=== PATIENT | female | born 1975 | race Caucasian/White ===

== ENCOUNTER 2017-05-08 18:38 | Emergency (ER) | payer SELFPAY ==
[~2017-05-08] VITALS: Ht 172.7 cm; Wt 96.6 kg
[~2017-05-08 18:38] MED LIST: ALBU8.5H4 IH; AZIT250T PO; BSP10T; CIPR500T78 PO; CYCL10TA9 PO; FLUO20CA25; HYDR-1231 PO; IBUP800T26 PO; LEVO500T2 PO; LITH300C; METH4TAB PO; NITR-65 PO; ONDAN4ODT PO; PRD20T PO; QUET50TA49; RT-ALBUINH IH; SEROQUEL; SULF-222 PO; TRAM50TA2 PO; VENL75CA93
[2017-05-08] MEDS ORDERED: RX-ALBUTEROL INHALER (PROAIR) 8 GM IH STA (20:39)
[2017-05-08] MEDS ORDERED: RX-AMOXICILLIN 500 MG CAP #3 PPK PO STA (20:39)
[2017-05-08] MEDS ORDERED: AMOX500C2 PO (20:43)
[2017-05-08] MEDS ORDERED: CIPR500T4 PO (20:43)
[2017-05-08] MEDS ORDERED: BENZ-13 PO (20:43)
--- NOTE | 2017-05-08 20:44 | ED Cough/URI ---
General Chief Complaint: Cough/Cold/Flu Symptoms Stated Complaint: SORE THROAT,DIARRHEA,CHEST PAIN,HEADACHE Nursing Triage Note: C/O cough sore throat GUPTA diarrhea times 1 week. NO fever or vomiting. States productive cough green sputum cp with breathing Source: patient Exam Limitations: no limitations History of Present Illness Time seen by provider: 20:19 Initial Comments 41-year-old female patient presents to the emergency department with complaints of sore throat, cough, nasal congestion, chest congestion, headache, and intermittent diarrhea 1 week. Denies shortness of air, wheezing, Nausea, or vomiting. Patient also reports rib pain with coughing the last couple of days. Timing/Duration: week, getting worse Severity/Quality: productive cough (green productive cough) Prior Episodes/Possible Cause: no prior episodes Modifying Factors: Worse With Coughing Allergies and Home Medications Allergies Coded Allergies: No Known Drug Allergies (Unverified , 01/27/09) Home Medications Albuterol Sulfate 8.5 Gm Hfa.aer.ad, 2 PUFF IH Q4H, #1 USE WITH SPACER AT ALL TIMES Prescribed by: ANJALI TODD on 03/21/15 1718 Albuterol Sulfate 8.5 Gm Hfa.aer.ad, 2 PUFF IH Q4H PRN for SHORTNESS OF BREATH, #1 Prescribed by: GOVIND EVANS on 09/21/151906 Albuterol Sulfate 8.5 Gm Hfa.aer.ad, 1-4 PUFF IH Q4H PRN for SHORTNESS OF BREATH , #1 Prescribed by: CHARLENE COELHO on 02/07/162033 Amoxicillin 500 Mg Capsule, 500 MG PO TID, #21 Ref 0 Prescribed by: SHEREE SIEGEL on 05/08/172042 Azithromycin 250 Mg Tablet, 250 MG PO DAILY, #4 Prescribed by: GOVIND EVANS on 09/21/15 190 Benzonatate 100 Mg Capsule, 1-2 TAB PO TID PRN for COUGH, #14 Ref 1 Prescribed by: SHEREE SIEGEL on 05/08/172042 Ciprofloxacin HCl 500 Mg Tablet, 500 MG PO BID, #14 Ref 0 Prescribed by: SHEREE SIEGEL on 05/08/172042 Casas Carbonate 300 Mg Capsule, #60 (Reported) Prednisone 20 Mg Tab, 40 MG PO DAILY, #6 Prescribed by: GOVIND EVANS on 09/21/151907 Prednisone 20 Mg Tab, 20 MG PO DAILY, #5 Prescribed by: CHARLENE COELHO on 02/07/162033 Quetiapine Fumarate 50 Mg Tab.er.24h, #30 (Reported) Venlafaxine HCl 75 Mg Cap.er.24h, #30 (Reported) Constitutional: see HPI, No fever, malaise EENTM: see HPI, nose congestion, nose pain (sinus pain), throat pain, No ear discharge, No ear pain, No throat swelling Respiratory: see HPI, cough, No dyspnea on exertion, phlegm, No short of breath , No wheezing Cardiovascular: No chest pain, No palpitations, No syncope Gastrointestinal: No abdominal pain, No constipation, diarrhea, No nausea, No vomiting Genitourinary: No decreased output, No dysuria, No frequency, No hematuria Musculoskeletal: other (generalized bodyaches) Skin: no symptoms reported Psychiatric/Neurological: See HPI, Headache, Denies Numbness, Denies Paresthesia, Denies Tingling, Denies Weakness All Other Systems Reviewed Negative Unless Noted: Yes (Negative excepted noted.) Past Xxsawsd-Eibxfe-Wlmaxu Hx Patient Social History Alcohol Use: Occasionally Uses Recreational Drug Use: No Smoking Status: Current Everyday Smoker Type Used: Cigarettes 2nd Hand Smoke Exposure: No Recent Foreign Travel: No Contact w/Someone Who Travel: No Recent Infectious Disease Expo: No Physical Abuse: No Sexual Abuse: No Mistreated: No Fear: No Immunizations Up To Date Tetanus Booster (TDap): Unknown Seasonal Allergies Seasonal Allergies: No Surgeries History of Surgeries: Yes (BACK SURG) Surgeries: Section, Gallbladder, Orthopedic, Tubal Ligation Respiratory History of Respiratory Disorde: Yes (tobaccoism) Respiratory Disorders: Asthma Cardiovascular History of Cardiac Disorders: No Neurological History of Neurological Disord: Yes Neurological Disorders: Headaches /Migraines 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 Gastrointestinal History of Gastrointestinal Di: No Musculoskeletal History of Musculoskeletal Dis: No Endocrine History of Endocrine Disorders: No Cancer History of Cancer: No Psychosocial History of Psychiatric Problem: Yes (ANGER EXPLOSIVE DISORDER) Behavioral Health Disorders: Anxiety, Bipolar Suicide Risk Score: 0 Integumentary History of Skin or Integumenta: No Blood Transfusions History of Blood Disorders: No Adverse Reaction to a Blood Tr: No Reviewed Nursing Assessment Reviewed/Agree w Nursing PMH: Yes Family Medical History Significant Family History: Heart Disease, Cancer, COPD, Stroke Physical Exam Vital Signs Vital Sign - Last 12Hours 05/08/17 19:15 Temp 97.2 Pulse 77 Resp 18 B/P (MAP) 122/67 Pulse Ox 98 Capillary Refill : Less Than 3 Seconds General Appearance: WD/WN, no apparent distress HEENT: PERRL/EOMI, TMs normal, pharyngeal erythema, other (maxillary sinus tenderness noted bilaterally. nasal mucosal swelling noted. (+) nasal congestion. ) Neck: non-tender, full range of motion, supple, normal inspection, No other ( negative nuchal rigidity.) Respiratory: no respiratory distress, no accessory muscle use, wheezing (faint expiratory wheeze rt base, cleared with coughing.) Cardiovascular: normal peripheral pulses, regular rate, rhythm, no edema, no murmur Gastrointestinal: normal bowel sounds, non tender, soft, no organomegaly Extremities: no pedal edema, normal capillary refill Neurologic/Psychiatric: alert, normal mood/affect, oriented x 3 Skin: normal color, warm/dry Progress/Results/Core Measures Results/Orders My Orders Orders - SHEREE SIEGEL Rx-Amoxicillin Capsule (Rx-Polymox Capsu (05/08/17 20:39) Rx-Albuterol Inhaler (Rx-Proair) (05/08/17 20:39) Benzonatate Capsule (Tessalon Perles) (05/08/17 20:45) Prednisone Tablet (Deltasone Tablet) (05/08/17 20:45) Levofloxacin Tablet (Levaquin Tablet) (05/08/17 20:45) Vital Signs/I&O Vital Sign - Last 12Hours 05/08/17 19:15 Temp 97.2 Pulse 77 Resp 18 B/P (MAP) 122/67 Pulse Ox 98 Blood Pressure Mean: 85 Departure Communication (Admissions) Progress Notes Patient seen and evaluated. Plan for discharge to home with oral Cipro Floxin, amoxicillin, Tessalon Perles. Patient to continue using the take home albuterol inhaler. Impression Impression: Primary Impression: Sinusitis, acute maxillary Qualified Codes: J01.00 - Acute maxillary sinusitis, unspecified Additional Impression: Bronchitis, acute Qualified Codes: J20.9 - Acute bronchitis, unspecified Disposition: 01 HOME, SELF-CARE Condition: Improved Departure-Patient Inst. Decision time for Depature: 20:41 Referrals: [facility] (PCP) Primary Care Physician NADIA TORREZ APRN (Family) Primary Care Physician Patient Instructions: Acute Bronchitis, Adult (DC), Sinusitis, Adult (DC) Add. Discharge Instructions: All discharge instructions reviewed with patient and/or family. Voiced understanding. Medications as instructed. Afrin nasal spray [id number] as needed for nasal congestion. Saline nasal spray [id number] as needed. Drink plenty of fluids. Cool humidifier. Tylenol extra strength over-the- counter as directed for pain or headache. Ibuprofen 800 mg by mouth every 8 hours as needed for pain or headache. Follow-up with your family practitioner for recheck if no improvement in symptoms. Return to the emergency department for worsened pain, headache, dizziness, changes in vision, slurred speech, vomiting, seizure, chest pain, shortness of air, or any other concerns. Scripts Benzonatate (Tessalon Perle) 100 Mg Capsule 1-2 TAB PO TID Y for COUGH, #14 CAP 1 Refill Prov: SHEREE SIEGEL 05/08/17 Amoxicillin (Amoxicillin) 500 Mg Capsule 500 MG PO TID, #21 CAP 0 Refills Prov: SHEREE SIEGEL 05/08/17 Ciprofloxacin HCl (Ciprofloxacin HCl) 500 Mg Tablet 500 MG PO BID, #14 TAB 0 Refills Prov: SHEREE SIEGEL 05/08/17 Work/School Note: Work Release Form Date Seen in the Emergency Department: May 08, 2017 Return to Work: May 10, 2017 Restrictions: Return-No Fever (24hrs) SHEREE SIEGEL May 08, 2017 20:44
[2017-05-08] MEDS ORDERED: BENZONATATE 100 MG (TESSALON) CAPSULE PO ONE (20:45)
[2017-05-08] MEDS ORDERED: predniSONE 20 MG TAB PO ONE (20:45)
[2017-05-08] MEDS ORDERED: LEVOFLOXACIN 500 MG TAB (LEVAQUIN) PO ONE (20:45)
[2017-05-08 21:37] VITALS: BP 120/68
== END 2017-05-08 21:20 | disposition home or self-care (01) ==
LOC: EDUNIT# 18:38 → ER 18:41
DX: J01.90 Acute sinusitis, unspecified (principal); J20.9 Acute bronchitis, unspecified; J45.909 Unspecified asthma, uncomplicated; G43.909 Migraine, unspecified, not intractable, without status migrainosus; F41.9 Anxiety disorder, unspecified; F31.9 Bipolar disorder, unspecified; F17.210 Nicotine dependence, cigarettes, uncomplicated; Z87.59 Personal history of other complications of pregnancy, childbirth and the puerperium; Z82.49 Family history of ischemic heart disease and other diseases of the circulatory system; Z98.51 Tubal ligation status
CPT/HCPCS: 99283

== ENCOUNTER 2017-08-15 16:06 | Emergency (ER) | payer SELFPAY ==
[~2017-08-15 16:06] MED LIST changes: +AMOX500C2 PO; +BENZ-13 PO; +CIPR500T4 PO
== END 2017-08-15 18:20 | disposition left against medical advice (07) ==
LOC: EDUNIT# 16:06 → ER 16:08
DX: R68.83 Chills (without fever) (principal); R05 Cough; R51 Headache

== ENCOUNTER 2018-10-09 23:02 | Emergency (ER) | payer SELFPAY ==
[~2018-10-09] VITALS: Ht 170.2 cm; Wt 103.4 kg
[~2018-10-09 23:02] MED LIST changes: -BENZ-13 PO; +BENZ100C18 PO; +QUET50TA4; -QUET50TA49
[2018-10-10 01:18] LABS: BILIRUBIN,URINE NEGATIVE (NEGATIVE); CLARITY,URINE CLEAR; COLOR,URINE YELLOW; GLUCOSE, URINE (UA) NEGATIVE (NEGATIVE); KETONES,URINE NEGATIVE (NEGATIVE); LEUKOCYTE ESTERASE ,URINE NEGATIVE (NEGATIVE); NITRITE,URINE NEGATIVE (NEGATIVE); PH,URINE 7 (5-9); PROTEIN,URINE 1+ (NEGATIVE); UROBILINOGEN,URINE 1 MG/DL (NORMAL)
[2018-10-10 01:35] LABS: AMORPHOUS SEDIMENT,UR FEW AMOR URATES /LPF; BACTERIA,URINE NEGATIVE /HPF; RBC,URINE 0-2 /HPF
[2018-10-10 02:10] LABS: BASOPHILS % (AUTO) 0 % (0-10); EOSINOPHILS # (AUTO) 0.1 10^3/uL (0.0-0.3); EOSINOPHILS % (AUTO) 2 % (0-10); HEMATOCRIT 42 % (35-52); HEMOGLOBIN 14.1 G/DL (11.5-16.0); LYMPHOCYTES # (AUTO) 2.7 X 10^3 (1.0-4.0); LYMPHOCYTES % (AUTO) 34 % (12-44); MEAN CORPUSCULAR HEMOGLOBIN 32 PG (25-34); MEAN CORPUSCULAR HGB CONC 34 G/DL (32-36); MEAN CORPUSCULAR VOLUME 94 FL (80-99); MEAN PLATELET VOLUME 10.9 FL (7.4-10.4); MONOCYTES # (AUTO) 0.5 X 10^3 (0.0-1.0); MONOCYTES % (AUTO) 7 % (0-12); NEUTROPHILS # (AUTO) 4.5 X 10^3 (1.8-7.8); NEUTROPHILS % (AUTO) 58 % (42-75); PLATELET COUNT 226 10^3/uL (130-400); RED CELL DISTRIBUTION WIDTH 12.3 % (10.0-14.5); WHITE BLOOD COUNT 7.9 10^3/uL (4.3-11.0)
[2018-10-10 02:29] LABS: ALANINE AMINOTRANSFERASE 18 U/L (0-55); ALBUMIN 3.8 GM/DL (3.2-4.5); ALKALINE PHOSPHATASE 30 U/L (40-136); AMYLASE 69 U/L (25-125); BILIRUBIN,TOTAL 0.8 MG/DL (0.1-1.0); BUN/CREATININE RATIO 13; CALCIUM 9.5 MG/DL (8.5-10.1); CARBON DIOXIDE 20 MMOL/L (21-32); CHLORIDE 109 MMOL/L (98-107); CREATININE SERUM 0.78 MG/DL (0.60-1.30); GFR ESTIMATED > 60; GLUCOSE 90 MG/DL (70-105); LIPASE 23 U/L (8-78); POTASSIUM 3.8 MMOL/L (3.6-5.0); SODIUM 141 MMOL/L (135-145); TOTAL PROTEIN 6.6 GM/DL (6.4-8.2)
[2018-10-10 02:47] LABS: AMPHETAMINE SCREEN, URINE NEGATIVE (NEGATIVE); BARBITURATE SCREEN URINE NEGATIVE (NEGATIVE); BENZODIAZEPINES SCREEN URINE NEGATIVE (NEGATIVE); CANNABINOID SCREEN, URINE NEGATIVE (NEGATIVE); COCAINE SCREEN URINE NEGATIVE (NEGATIVE); METHADONE STAT NEGATIVE (NEGATIVE); METHAMPHETAMINE SCREEN URINE S NEGATIVE (NEGATIVE); OPIATE SCREEN URINE NEGATIVE (NEGATIVE); OXYCODONE STAT NEGATIVE (NEGATIVE); PROPOXYPHENE STAT NEGATIVE (NEGATIVE); TRICYCLIC ANTIDEPRESSANTS SCRE NEGATIVE (NEGATIVE)
[2018-10-10] MEDS ORDERED: HYOS0.1283 SL (03:23)
--- NOTE | 2018-10-10 03:23 | ED Abdominal Pain ---
General Chief Complaint: Abdominal/GI Problems Stated Complaint: ABD PAIN Nursing Triage Note: lower abdominal pain since approx. 2230 Sepsis Screen: No Definite Risk Allergies and Home Medications Allergies Coded Allergies: No Known Drug Allergies (Unverified , 01/27/09) Past Cqdzvti-Mfcqtf-Fqpdvr Hx Patient Social History Alcohol Use: Rarely Uses Recreational Drug Use: No Smoking Status: Current Everyday Smoker Type Used: Cigarettes 2nd Hand Smoke Exposure: Yes Recent Foreign Travel: No Contact w/Someone Who Travel: No Recent Infectious Disease Expo: No Recent Hopitalizations: No Immunizations Up To Date Tetanus Booster (TDap): Unknown Seasonal Allergies Seasonal Allergies: No Past Medical History Surgeries: Yes (BACK SURG) Section, Gallbladder, Orthopedic, Tubal Ligation Respiratory: Yes Asthma Cardiac: No Neurological: Yes Headaches /Migraines : 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 oz. 103.224456tt; 35.24 BMI Method:Stated Progress/Results/Core Measures Results/Orders Lab Results Laboratory Tests Test 10/10/18 00:55 10/10/18 02:00 Range/Units Urine Color YELLOW Urine Clarity CLEAR Urine pH 7 5-9 Urine Specific [place] 1.015 L 1.016-1.022 Urine Protein 1+ H NEGATIVE Urine Glucose (UA) NEGATIVE NEGATIVE Urine Ketones NEGATIVE NEGATIVE Urine Nitrite NEGATIVE NEGATIVE Urine Bilirubin NEGATIVE NEGATIVE Urine Urobilinogen 1 NORMAL MG/DL Urine Leukocyte Esterase NEGATIVE NEGATIVE Urine RBC (Auto) 1+ H NEGATIVE Urine RBC 0-2 /HPF Urine WBC NONE /HPF Urine Squamous Epithelial Cells 10-25 H /HPF Urine Crystals PRESENT H /LPF Urine Amorphous Sediment FEW SABI URATES H /LPF Urine Bacteria NEGATIVE /HPF Urine Casts NONE /LPF Urine Mucus NEGATIVE /LPF Urine Culture Indicated NO Urine Opiates Screen NEGATIVE NEGATIVE Urine Oxycodone Screen NEGATIVE NEGATIVE Urine Methadone Screen NEGATIVE NEGATIVE Urine Propoxyphene Screen NEGATIVE NEGATIVE Urine Barbiturates Screen NEGATIVE NEGATIVE Ur Tricyclic Antidepressants Screen NEGATIVE NEGATIVE Urine Phencyclidine Screen NEGATIVE NEGATIVE Urine Amphetamines Screen NEGATIVE NEGATIVE Urine Methamphetamines Screen NEGATIVE NEGATIVE Urine Benzodiazepines Screen NEGATIVE NEGATIVE Urine Cocaine Screen NEGATIVE NEGATIVE Urine Cannabinoids Screen NEGATIVE NEGATIVE White Blood Count 7.9 4.3-11.0 10^3/uL Red Blood Count 4.45 4.35-5.85 10^6/uL Hemoglobin 14.1 11.5-16.0 G/DL Hematocrit 42 35-52 % Mean Corpuscular Volume 94 80-99 FL Mean Corpuscular Hemoglobin 32 25-34 PG Mean Corpuscular Hemoglobin Concent 34 32-36 G/DL Red Cell Distribution Width 12.3 10.0-14.5 % Platelet Count 226 130-400 10^3/uL Mean Platelet Volume 10.9 H 7.4-10.4 FL Neutrophils (%) (Auto) 58 42-75 % Lymphocytes (%) (Auto) 34 12-44 % Monocytes (%) (Auto) 7 0-12 % Eosinophils (%) (Auto) 2 0-10 % Basophils (%) (Auto) 0 0-10 % Neutrophils # (Auto) 4.5 1.8-7.8 X 10^3 Lymphocytes # (Auto) 2.7 1.0-4.0 X 10^3 Monocytes # (Auto) 0.5 0.0-1.0 X 10^3 Eosinophils # (Auto) 0.1 0.0-0.3 10^3/uL Basophils # (Auto) 0.0 0.0-0.1 10^3/uL Sodium Level 141 135-145 MMOL/L Potassium Level 3.8 3.6-5.0 MMOL/L Chloride Level 109 H 98-107 MMOL/L Carbon Dioxide Level 20 L 21-32 MMOL/L Anion Gap 12 5-14 MMOL/L Blood Urea Nitrogen 10 7-18 MG/DL Creatinine 0.78 0.60-1.30 MG/DL Estimat Glomerular Filtration Rate > 60 BUN/Creatinine Ratio 13 Glucose Level 90 70-105 MG/DL Calcium Level 9.5 8.5-10.1 MG/DL Corrected Calcium 9.7 8.5-10.1 MG/DL Total Bilirubin 0.8 0.1-1.0 MG/DL Aspartate Amino Transf (AST/SGOT) 24 5-34 U/L Alanine Aminotransferase (ALT/SGPT) 18 0-55 U/L Alkaline Phosphatase 30 L 40-136 U/L Total Protein 6.6 6.4-8.2 GM/DL Albumin 3.8 3.2-4.5 GM/DL Amylase Level 69 25-125 U/L Lipase 23 8-78 U/L My Orders Orders - ANJALI TODD DO Ua Culture If Indicated (10/10/18 00:48) Urine Bedside (10/10/18 00:59) Ct Abd/Pelvis Wo(Kidney Stone) (10/10/18 01:43) Abdomen, Flat & Upright/Decub (10/10/18 01:43) Amylase (10/10/18 01:43) Cbc With Automated Diff (10/10/18 01:43) Comprehensive Metabolic Panel (10/10/18 01:43) Drug Screen Stat (Urine) (10/10/18 01:43) Lipase (10/10/18 01:43) Hyoscyamine Sl Tablet (Levsin Sl Tablet) (10/10/18 03:30) Vital Signs/I&O 10/09/18 23:45 Temp 98.6 Pulse 91 Resp 18 B/P (MAP) 114/83 (93) Pulse Ox 97 O2 Delivery Room Air Blood Pressure Mean: 93 Departure Impression Primary Impression: Abdominal pain Disposition: HOME, SELF-CARE Condition: Improved Departure-Patient Inst. Referrals: [facility] (PCP/Family) Primary Care Physician Patient Instructions: Acute Abdomen (Belly Pain), Adult (DC) Add. Discharge Instructions: CLEAR LIQUIDS--WATER, BROTH, JELLO. GATORADE NO FOOD UNTIL YOUR PAIN IS GONE WHEN YOUR PAIN IS GONE, ADD BRATS DIET TO CLEAR LIQUIDS--BANANAS, RICE, APPLESAUCE, TOAST, SALTINES FOLLOW UP WITH YOUR DR TOMORROW IF NO BETTER RETURN TO ER IF WORSE All discharge instructions reviewed with patient and/or family. Voiced understanding. Scripts Hyoscyamine Sulfate (Levsin-Sl) 0.125 Mg Tab.subl 1-2 TAB SL Q4H for Abdominal Pain, #10 TAB Prov: ANJALI TODD DO 10/10/18 ANJALI TODD DO Oct 10, 2018 03:23
[2018-10-10] MEDS ORDERED: HYOSCYAMINE 0.125 MG (LEVSIN) TAB PO ONE (03:30)
[2018-10-10 03:37] VITALS: BP 122/85
--- NOTE | 2018-10-10 06:16 | Diagnostic Imaging Report ---
PROCEDURE: CT urinary tract, rule out kidney stone. TECHNIQUE: Multiple contiguous axial images were obtained through the abdomen and pelvis without the use of intravenous contrast. INDICATION: Abdominal pain. FINDINGS: There is an approximately 1 cm lucency in the dome of the liver with other tiny hypodensities seen in both lobes of the liver. These are too small to fully characterize on noncontrast study but likely represent cysts. The gallbladder surgically absent without evidence of biliary ductal dilatation. No pancreatic, adrenal gland or splenic abnormality is seen. Evaluation of kidneys is limited without intravenous contrast. There is an approximately 1.2 cm exophytic nodule posteriorly on the right which likely represents a cyst. No free fluid is seen within the abdomen or pelvis. There are several cysts in the left adnexal region reaching 2 cm in size. Dominant cyst in the right adnexa reaches 2.8 cm in diameter. Note is made of mild left convexity curvature of the lumbar spine with mild endplate spurring in the lower lumbar region. There is also moderate L4-L5 and L5-S1 degenerative facet arthropathy with grade 1 anterolisthesis of L5 on S1. IMPRESSION: Dominant bilateral ovarian cysts without evidence of significant free fluid or other acute abnormality in the abdomen or pelvis. If warranted, followup ultrasound of the pelvis could be performed after passage of several menstrual cycles to document resolution. Dictated by: Dictated on workstation # [id number]
--- NOTE | 2018-10-10 06:56 | Diagnostic Imaging Report ---
Indication: Abdominal pain. Supine and upright views of the abdomen are obtained. Comparison is made to study of 01/27/2009. Overall bowel gas pattern is unremarkable. There is no evidence of free intraperitoneal gas or pneumatosis. Surgical clips are seen in the gallbladder fossa and bilaterally in the pelvis. Degenerative changes are seen in the lower lumbar spine. Impression: No acute abnormalities identified. Dictated by: Dictated on workstation # [id number]
== END 2018-10-10 03:46 | disposition home or self-care (01) ==
LOC: EDUNIT# 23:02 → ER 23:03
DX: R10.30 Lower abdominal pain, unspecified (principal); J45.909 Unspecified asthma, uncomplicated; G43.909 Migraine, unspecified, not intractable, without status migrainosus; F41.9 Anxiety disorder, unspecified; F31.9 Bipolar disorder, unspecified; F63.81 Intermittent explosive disorder; F17.210 Nicotine dependence, cigarettes, uncomplicated; Z90.710 Acquired absence of both cervix and uterus; Z98.890 Other specified postprocedural states; Z82.49 Family history of ischemic heart disease and other diseases of the circulatory system; Z98.51 Tubal ligation status
CPT/HCPCS: 36415; 74019; 74176; 80053; 80306; 81000; 82150; 83690; 84703; 85025

== ENCOUNTER 2019-03-11 23:39 | Emergency (ER) | payer SELFPAY ==
[~2019-03-11] VITALS: Ht 170.2 cm; Wt 98.9 kg
[~2019-03-11 23:39] MED LIST changes: +HYOS0.1283 SL
--- NOTE | 2019-03-12 00:12 | ED Lower Extremity ---
General Chief Complaint: Lower Extremity Stated Complaint: RT FOOT PAIN-FALL Source: patient History of Present Illness Date Seen by Provider: Mar 11, 2019 Time Seen by Provider: 23:59 Initial Comments PT ARRIVES VIA POV FROM HOME C/O RIGHT ANKLE INJURY STATES SHE WAS WALKING DOWN STEPS AND SLIPPED AND FELL/TWISTING RIGHT ANKLE OCCURRED AT HOME AT 0800 THIS AM OTHER THAN AN ABRASION TO LEFT LOWER LEG, PT HAS NO OTHER INJURIES DID NOT HIT HEAD AND NO LOSS OF CONSCIOUSNESS NO PARESTHESIAS OR MOTOR DEFICITS HAS NOT TAKEN ANYTHING FOR PAIN NO PRIOR INJURY TO THIS FOOT OR ANKLE, OTHER THAN SPRAIN MANY YEARS AGO PCP: [facility] Allergies and Home Medications Allergies Coded Allergies: No Known Drug Allergies (Unverified , 01/27/09) Home Medications Hyoscyamine Sulfate 0.125 Mg Tab.subl, 1-2 TAB SL Q4H Prescribed by: ANJALI TODD on 10/10/18 0323 Patient Home Medication List Home Medication List Reviewed: Yes Review of Systems Constitutional: no symptoms reported Respiratory: no symptoms reported Cardiovascular: no symptoms reported Musculoskeletal: see HPI Skin: see HPI Psychiatric/Neurological: No Symptoms Reported Past Zucebox-Xqiqcd-Xhepxl Hx Patient Social History Alcohol Use: Occasionally Uses Recreational Drug Use: No Smoking Status: Current Everyday Smoker (1/2 PPD) Type Used: Cigarettes (1/2 PPD) 2nd Hand Smoke Exposure: Yes Recent Foreign Travel: No Contact w/Someone Who Travel: No Recent Hopitalizations: No Immunizations Up To Date Tetanus Booster (TDap): Unknown Seasonal Allergies Seasonal Allergies: No Past Medical History Surgeries: Yes (BACK SURGERY) Section, Gallbladder, Orthopedic, Tubal Ligation Respiratory: Yes Asthma Cardiac: No Neurological: Yes 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 /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 oz. 103.586289tx; 35.24 BMI Method:Stated General Appearance: WD/WN, no apparent distress, obese HEENT: other (EDENTULOUS) Hips: right hip normal inspection Legs: right leg normal inspection; left leg other (MINOR ABRASION TO ANTERIOR/LATERAL ASPECT OF LOWER LEG--JUST BELOW LEFT KNEE) Knees: right knee normal inspection Ankles: right ankle bone tenderness, right ankle limited range of motion, right ankle pain, right ankle soft tissue tenderness, right ankle swelling, right ankle other (LATERAL MALLEOLUS) Feet: right foot normal inspection Neurologic/Tendon: normal sensation, normal motor functions, normal tendon functions 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, no motor/sensory deficits, alert, oriented x 3 Skin: normal color, warm/dry Procedures/Interventions Splinting and Joint Reduction : Immobilizers: Step Light Walker s/m/lg Progress/Results/Core Measures Results/Orders My Orders Orders - ANJALI TODD DO Ankle, Right, 3 Views (03/12/19 00:04) Dipht,Pertuss(Acell),Tet Adult (Boostrix (03/12/19 00:15) Eddi Bandage (03/12/19 00:31) Steplite (03/12/19 00:31) Medications Given in ED Current Medications Medications Dose Ordered Sig/Shira Route Start Time Stop Time Status Last Admin Dose Admin Diphtheria/ Tetanus/Acell Pertussis 0.5 ml ONCE ONCE IM 03/12/19 00:15 03/12/19 00:16 DC 03/12/19 00:44 0.5 ML Vital Signs/I&O 03/12/19 00:00 Temp 97.5 Pulse 81 Resp 15 B/P (MAP) 105/69 (81) Pulse Ox 98 O2 Delivery Room Air Diagnostic Imaging Comments XRAYS RIGHT ANKLE--NO FX OR DISLOCATION--PENDING RADIOLOGIST REVIEW Reviewed: Reviewed by Me Departure Impression Primary Impression: Right ankle sprain Additional Impressions: Abrasion of left lower leg Uparlrevja-kdaueiptn-kwcsbhp (DPT) vaccination administered at current visit Disposition: HOME, SELF-CARE Condition: Stable Departure-Patient Inst. Referrals: [facility] (PCP/Family) Primary Care Physician Patient Instructions: Ankle Sprain (DC), Diphtheria and Tetanus Toxoids, and Acellular Pertussis Vaccine, Skin Abrasions (DC) Add. Discharge Instructions: ICE TO AREA AT 20 MINUTE INTERVALS EDDI WRAP AND WEAR BOOT FOR PAIN AND SWELLING TYLENOL AND MOTRIN NEEDED FOR PAIN FOLLOW UP WITH YOUR DR IN 1 WEEK IF NO BETTER All discharge instructions reviewed with patient and/or family. Voiced understanding. ANJALI TODD DO Mar 12, 2019 00:12
[2019-03-12] MEDS ORDERED: TETANUS,DIPTH,PERTUSS P/F (BOOSTRIX) 0.5 ML VIAL IM ONE (00:15)
[2019-03-12 01:00] VITALS: BP 101/64
--- NOTE | 2019-03-12 07:07 | Diagnostic Imaging Report ---
Indication: Right ankle injury. Three views of the right ankle show no fracture, dislocation or other acute abnormalities. Impression: Negative right ankle. Dictated by: Dictated on workstation # [id number]
== END 2019-03-12 01:00 | disposition home or self-care (01) ==
LOC: EDUNIT# 23:39 → ER 23:43
DX: S93.401A Sprain of unspecified ligament of right ankle, initial encounter (principal); S80.812A Abrasion, left lower leg, initial encounter; J45.909 Unspecified asthma, uncomplicated; G43.909 Migraine, unspecified, not intractable, without status migrainosus; F41.9 Anxiety disorder, unspecified; F31.9 Bipolar disorder, unspecified; F17.210 Nicotine dependence, cigarettes, uncomplicated; Z90.49 Acquired absence of other specified parts of digestive tract; Z23 Encounter for immunization; Z98.51 Tubal ligation status; Z82.49 Family history of ischemic heart disease and other diseases of the circulatory system; W10.9XXA Fall (on) (from) unspecified stairs and steps, initial encounter; X50.1XXA Overexertion from prolonged static or awkward postures, initial encounter
CPT/HCPCS: 73610; 90471; 90715

== ENCOUNTER 2019-10-03 19:38 | Emergency (ER) | payer SELFPAY ==
[~2019-10-03] VITALS: Ht 165 cm; Wt 100.0 kg
[~2019-10-03 19:38] MED LIST changes: -TRAM50TA2 PO; +TRM50T PO
[2019-10-03] MEDS ORDERED: METH-313 PO (19:58)
[2019-10-03] MEDS ORDERED: PRD20T PO (19:58)
--- NOTE | 2019-10-03 19:58 | ED Lower Extremity ---
General Stated Complaint: LEFT HIP PAIN Source: patient Exam Limitations: no limitations History of Present Illness Date Seen by Provider: Oct 03, 2019 Time Seen by Provider: 19:55 Initial Comments To ER with left posterolateral hip pain that began earlier today, intermittently has radiated down the left leg. History of sciatica with low back surgery sever al years ago, this pain is the same. No loss of sensation of genitals or loss of bowel or bladder control. Onset: just prior to arrival Severity: moderate Pain/Injury Location: left hip Modifying Factors: Improves With Movement Allergies and Home Medications Allergies Coded Allergies: No Known Drug Allergies (Unverified , 01/27/09) Home Medications Hyoscyamine Sulfate 0.125 Mg Tab.subl, 1-2 TAB SL Q4H Prescribed by: ANJALI TODD on 10/10/18 0323 Patient Home Medication List Home Medication List Reviewed: Yes Review of Systems Constitutional: see HPI EENTM: see HPI Respiratory: no symptoms reported Cardiovascular: no symptoms reported Genitourinary: no symptoms reported Musculoskeletal: see HPI, joint pain Skin: no symptoms reported Psychiatric/Neurological: No Symptoms Reported Past Zvdmsij-Jendjt-Dsdhix Hx Patient Social History Type Used: Cigarettes 2nd Hand Smoke Exposure: Yes Recent Foreign Travel: No Contact w/Someone Who Travel: No Recent Hopitalizations: No Immunizations Up To Date Tetanus Booster (TDap): Unknown Seasonal Allergies Seasonal Allergies: No Past Medical History Surgeries: Yes (BACK SURGERY) Section, Gallbladder, Orthopedic, Tubal Ligation Respiratory: Yes Asthma Cardiac: No Neurological: Yes Headaches /Migraines [employer]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 oz. 98.483718aa; 35.24 BMI Method:Stated General Appearance: WD/WN, no apparent distress Neck: non-tender, full range of motion Respiratory: no respiratory distress, no accessory muscle use Gastrointestinal: normal bowel sounds, non tender Hips: bilateral hip non-tender, bilateral hip normal inspection, bilateral hip normal range of motion; left hip other (left hip flexion does worsen the pain) Legs: bilateral leg non-tender, bilateral leg normal inspection, bilateral leg normal range of motion Knees: bilateral knee non-tender, bilateral knee normal inspection, bilateral knee normal range of motion Ankles: bilateral ankle non-tender, bilateral ankle normal inspection, bilateral ankle normal range of motion Feet: bilateral foot non-tender, bilateral foot normal inspection, bilateral foot normal range of motion Neurologic/Psychiatric: alert, normal mood/affect, oriented x 3 Skin: normal color, warm/dry Progress/Results/Core Measures Results/Orders My Orders Orders - GOVIND EVANS APRN Hydrocodone/Apap 5/325 Tablet (Lortab 5 (10/03/19 20:00) Departure Impression Primary Impression: Lumbar radiculopathy Disposition: HOME, SELF-CARE Condition: Stable Departure-Patient Inst. Decision time for Depature: 19:57 Referrals: [facility] (PCP/Family) Primary Care Physician Patient Instructions: Radiculopathy Add. Discharge Instructions: 1. Return to ER for any concerns 2. Follow-up with your doctor next week 3. Scripts Methocarbamol (Robaxin-750) 750 Mg Tablet 750 MG PO Q4H PRN for PAIN-MODERATE (5-7), #14 TAB Prov: GOVIND EVANS APRN 10/03/19 Prednisone (Prednisone) 20 Mg Tab 40 MG PO DAILY, #8 TAB 0 Refills Prov: GOVIND EVANS APRN 10/03/19 Work/School Note: Work Release Form Date Seen in the Emergency Department: Oct 03, 2019 Return to Work: Oct 05, 2019 GOVIND EVANS APRN Oct 03, 2019 19:58
[2019-10-03] MEDS ORDERED: HYDROcodone/APAP 5 MG/325 MG (LORTAB) TAB PO ONE (20:00)
[2019-10-03 20:04] VITALS: BP 0/0
== END 2019-10-03 20:04 | disposition home or self-care (01) ==
LOC: EDUNIT# 19:38 → ER 19:39
DX: M54.16 Radiculopathy, lumbar region (principal); Z77.22 Contact with and (suspected) exposure to environmental tobacco smoke (acute) (chronic)
CPT/HCPCS: 99283

== ENCOUNTER 2020-01-24 18:16 | Emergency (ER) | payer SELFPAY ==
[~2020-01-24] VITALS: Ht 170.1 cm; Wt 101.0 kg
[~2020-01-24 18:16] MED LIST changes: +METH-313 PO
--- OUTSIDE RECORDS SUMMARY | 2020-01-24 18:21 | XMS REPORT | Continuity of Care Document ---
Author Organization Unknown Address Unknown Phone Unavailable Allergies There is no data. Medications There is no data. Problems Date Dx Coded Attending Type Code Diagnosis Diagnosed By 04/15/2008 ZARA PEREZ DO V58.69 MEDICATION HIGH RISK 04/15/2008 RICHARD CANTRELL MD V58 .69 MEDICATION HIGH RISK 04/15/2008 ZARA PEREZ DO V58.69 MEDICATION HIGH RISK 04/15/2008 MYNOR ROMERO LCPC V58.69 MEDICATION HIGH RISK 11/22/2008 ZARA PEREZ DO 296.80 MO BIPOLAR NOS 11/22/2008 RICHARD CANTRELL MD 296 .80 MO BIPOLAR NOS 11/22/2008 ZARA PEREZ DO 296.80 MO BIPOLAR NOS 11/22/2008 MYNOR ROMERO LCPC 296.80 MO BIPOLAR NOS 01/22/2009 ZARA PEREZ DO 296.90 EPISODIC MOOD DISORDERS 01/22/2009 ZARA PEREZ DO 300.00 ANXIETY DISORDER NOS 01/22/2009 RICHARD CANTRELL MD 296 .90 EPISODIC MOOD DISORDERS 01/22/2009 RICHARD CANTRELL MD 300 .00 ANXIETY DISORDER NOS 01/22/2009 ZARA PEREZ DO 296.90 EPISODIC MOOD DISORDERS 01/22/2009 ZARA PEREZ DO 300.00 ANXIETY DISORDER NOS 01/22/2009 MYNOR ROMERO LCPC 296.90 EPISODIC MOOD DISORDERS 01/22/2009 MYNOR ROMERO LCPC 300.00 ANXIETY DISORDER NOS 04/29/2014 RICHARD CANTRELL MD V70 .5 HEALTH EXAMINATION OF DEFINED SUBPOPULATIONS 04/29/2014 ZARA PEREZ DO V70.5 HEALTH EXAMINATION OF DEFINED SUBPOPULATIONS 04/29/2014 MYNOR ROMERO LCPC V7 0.5 HEALTH EXAMINATION OF DEFINED SUBPOPULATIONS 05/03/2014 ZARA PEREZ DO V74.1 TB SCREENING 05/03/2014 MYNOR ROMERO LCPC V7 4.1 TB SCREENING Procedures Code Description [place] [address] URIN E DRUG SCREEN (IN-HOUSE) 04/29/2014 77194 TB T EST INTRADERMAL 05/03/2014 73793 PSYC H DIAGNOSTIC EVALUATION 06/14/2014 Results There is no data. Encounters ACCT No. Visit Date/Time Discharge Status Pt. Type Provider Facility Loc./Unit Complaint [id number] 06/11/2014 13:14:00 06/11/2014 23:59: 59 CLS Outpatient MYNOR ROMERO LCPC [id number] 05/03/2014 10:47:00 05/03/2014 23:59: 59 CLS Outpatient ZARA PEREZ DO [id number] 04/29/2014 13:55:00 04/29/2014 23:59: 59 CLS Outpatient TAMIA MERIDA, RICHARD Avilez [id number] 01/16/2014 13:21:00 01/16/2014 23:59: 59 CLS Outpatient ZARA PEREZ DO
--- NOTE | 2020-01-24 18:49 | ED Lower Extremity ---
General Chief Complaint: Lower Extremity Stated Complaint: L HIP PAIN Nursing Triage Note: Pt c/o ongoing L hip pain. Pt reports being seen at [facility] once and [place] twice for the same issue. When asked what follow up care has been recommended to pt, pt denies any follow up care. Pt reports camping last night and sleeping on an air mattress which aggrevated the condition. Nursing Sepsis Screen: No Definite Risk Source: patient History of Present Illness Date Seen by Provider: Jan 24, 2020 Time Seen by Provider: 18:30 Initial Comments PT ARRIVES VIA POV FROM HOME C/O LEFT HIP PAIN--POINTS TO LEFT SI JOINT AREA, LEFT BUTTOCKS AND LEFT POSTERIOR/LATERAL HIP AREA STATES PAIN IS CHRONIC FOR > 10 YEARS, AND HAD LUMBAR SPINE SURGERY IN 2010 FOR IT PAIN HAS BEEN WORSE THE LAST 6+ MONTHS NO INJURY STATES LAST NIGHT SHE WENT CAMPING AND SLEPT ON AIR MATTRESS AND IT HAS BEEN WORSE TODAY NO PARESTHESIAS OR MOTOR DEFICITS NO LOSS OF BOWEL OR BLADDER CONTROL OR LOSS OF SENSATION TO GENITAL AREA TOOK 1 UNKNOWN OTC "PAIN RELIEVER" TODAY WITHOUT RELIEF PT STATES SHE WAS SEEN HERE ONCE ( 10/03/19) FOR IT, AND HAS BEEN TO [place] ER X 2 IN LAST 6 MONTHS FOR IT--NO TESTS DONE, AND HAS NEVER FOLLOWED UP WITH [facility] OR ANYONE AT ANY TIME FOR THIS STATES THIS IS EXACTLY THE SAME HER PRIOR ISSUES. LMP--1 WEEK AGO, NORMAL. S/P BTL PCP: [facility] Allergies and Home Medications Allergies Coded Allergies: No Known Drug Allergies (Unverified , 01/27/09) Home Medications Hyoscyamine Sulfate 0.125 Mg Tab.subl, 1-2 TAB SL Q4H Prescribed by: ANJALI TODD on 10/10/18 0323 Methocarbamol 750 Mg Tablet, 750 MG PO Q4H PRN for PAIN-MODERATE (5-7) Prescribed by: GOVIND EVANS on 10/03/191957 Methocarbamol 750 Mg Tablet, 750 MG PO Q6H Prescribed by: ANJALI TODD on 01/24/201933 Methylprednisolone 4 Mg Tab.ds.pk, 4 MG PO UD PER DOSE PACK INSTRUCTIONS Prescribed by: ANJALI TODD on 01/24/201933 Prednisone 20 Mg Tab, 40 MG PO DAILY Prescribed by: GOVIND EVANS on 10/03/191957 Patient Home Medication List Home Medication List Reviewed: Yes Review of Systems Constitutional: no symptoms reported Respiratory: no symptoms reported Cardiovascular: no symptoms reported Gastrointestinal: no symptoms reported Genitourinary: no symptoms reported LMP: Jan 15, 2020 Control/STD Prophylaxis: Other (BTL) Musculoskeletal: see HPI Skin: no symptoms reported Psychiatric/Neurological: No Symptoms Reported Past Vzwerng-Txmjgf-Awtaik Hx Past Med/Social Hx: Reviewed and Corrections made Patient Social History Alcohol Use: Occasionally Uses Recreational Drug Use: No Smoking Status: Current Everyday Smoker Type Used: Cigarettes 2nd Hand Smoke Exposure: Yes Recent Foreign Travel: No Contact w/Someone Who Travel: No Recent Infectious Disease Expo: No Recent Hopitalizations: No Immunizations Up To Date Tetanus Booster (TDap): Unknown Seasonal Allergies Seasonal Allergies: No Past Medical History Surgeries: Yes (LUMBAR SPINE SURGERY 2010) Section, Gallbladder, Orthopedic, Tubal Ligation Respiratory: Yes Asthma Cardiac: No Neurological: Yes (HAS HAD "SEIZURES" IN PAST-NO MEDS, NO NEUROLOGIST--? 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 Genitourinary: No Gastrointestinal: Yes (S/P AJ) Gall Bladder Disease Musculoskeletal: Yes (SCIATICA; LUMBAR SPINE SURGERY 2010) Chronic Back Pain Endocrine: No HEENT: No Cancer: No Psychosocial: Yes (ANGER EXPLOSIVE DISORDER) Pseudo Seizures (??), Anxiety, Bipolar, Depression Integumentary: No Blood Disorders: No Adverse Reaction/Blood Tranf: No Family Medical History Heart Disease, Cancer, COPD, Stroke Physical Exam Vital Signs Vital Signs - First Documented 01/24/20 18:20 Temp 36.7 Pulse 96 Resp 22 B/P (MAP) 99/78 (85) Pulse Ox 96 O2 Delivery Room Air Capillary Refill : Less Than 3 Seconds Height, Weight, BMI Height: 5'7.00" Weight: 218lbs. oz. 98.193424rk; 34.00 BMI Method:Stated General Appearance: WD/WN, no apparent distress Neck: normal inspection Cardiovascular: normal peripheral pulses, regular rate, rhythm, no murmur Respiratory: normal breath sounds, no respiratory distress Gastrointestinal: non tender, soft Back: no CVA tenderness, no vertebral tenderness, other (LEFT SI JOINT TENDERNESS. , LEFT BUTTOCK AND LEFT POSTERIOR AND LATERAL HIP TENDERNESS. ) Hips: right hip normal inspection; left hip bone tenderness, left hip limited range of motion, left hip pain Legs: bilateral leg normal inspection Knees: bilateral knee normal inspection Ankles: bilateral ankle normal inspection Feet: bilateral foot normal inspection Neurologic/Tendon: normal sensation, normal motor functions, normal tendon functions Neurologic/Psychiatric: no motor/sensory deficits, alert, normal mood/affect, oriented x 3 Skin: normal color, warm/dry; No rash Progress/Results/Core Measures Results/Orders My Orders Orders - ANJALI TODD DO Pelvis With Left Hip 2-3 Views (01/24/20 18:41) Ct Lumbar Spine Wo (01/24/20 18:41) Ct Extremity Lower Left Wo (01/24/20 18:41) Ketorolac Injection (Toradol Injection) (01/24/20 19:34) Orphenadrine Inj (Ed Only) (Norflex Inje (01/24/20 19:34) Vital Signs/I&O 01/24/20 18:20 Temp 36.7 Pulse 96 Resp 22 B/P (MAP) 99/78 (85) Pulse Ox 96 O2 Delivery Room Air Blood Pressure Mean: 85 Progress Progress Note : Progress Note GIVEN TORADOL AND NORFLEX SYMPTOMS IMPROVED AT DISMISSAL AMBULATES OUT OF ER WITHOUT DIFFICULTY Diagnostic Imaging Comments PER RADIOLOGIST REPORTS AT 1929 PELVIS AND LEFT HIP XRAYS--NO ACUTE PROCESS CT LUMBAR SPINE-- FINDINGS: There is a mild scoliotic deformity of the spine. There is grade 1 anterolisthesis of L5 on S1 with remaining alignment maintained. Vertebral body heights preserved. No acute fractures identified. There is multilevel suspected bulging disc material with a bulging disc at L1-L2 suspected as well as bilateral facet hypertrophy causing at least mild central stenosis. At L4-L5, there appears to be possible severe central stenosis with marked bilateral facet hypertrophy noted. There is a likely bulging disc at this level better characterized with MRI as clinically indicated. Bilateral facet hypertrophy at L5-S1 is also noted with laminectomies at this level. No significant stenosis by CT appreciated. There is diffuse multilevel neural foraminal narrowing most marked at the L4-L5 and L5-S1 levels. The visualized intra-abdominal structures unremarkable for acute process. Atherosclerotic disease is noted. IMPRESSION: 1. Multilevel degenerative findings as above. No acute process is seen. 2. Suspected central stenosis at several levels with bulging disc material also suspected, but better characterized with MRI as clinically indicated. CT LEFT HIP/LOWER EXTREMITY FINDINGS: There is a nonspecific lucency along the anterior border of the left greater trochanter only seen on the axial images. A similar lucency is noted more medially along the anterior femoral head neck junction on image #99 of 231. Although this could represent nutrient foramina given the persistent pain MRI if patient is able would be recommended to evaluate for edema may suggest an underlying occult fracture. No dislocations. No displaced fracture lines. There is diffuse degenerative disease within the hip joint with subchondral cysts throughout the anterior acetabulum and throughout the femoral head. IMPRESSION: 1. Questionable nondisplaced fracture line versus a prominent nutrient foramen left proximal femur as described above and if patient is able MRI would be recommended. 2. Diffuse degenerative findings throughout the joint. Reviewed: Reviewed by Me Departure Impression Primary Impression: Low back pain with left-sided sciatica Additional Impressions: Lumbar degenerative disc disease ABNORMAL FINDING ON CT OF LEFT HIP Exacerbation of chronic back pain Disposition: 01 HOME, SELF-CARE Condition: Stable Departure-Patient Inst. Referrals: [facility] (PCP/Family) Primary Care Physician Patient Instructions: Degenerative Disc Disease (DC), Sciatica (DC), Sciatica Exercises Add. Discharge Instructions: MOIST HEAT TO AREA AT 20 MINUTE INTERVALS NO LIFTING OVER 5 LBS, NO TWISTING OR BENDING AT WAIST FOLLOW UP WITH [facility] THIS WEEK FOR FURTHER CARE All discharge instructions reviewed with patient and/or family. Voiced understanding. Scripts Methocarbamol (Robaxin-750) 750 Mg Tablet 750 MG PO Q6H, #20 TAB Prov: ANJALI TODD DO 01/24/20 Methylprednisolone (Medrol) 4 Mg Tab.ds.pk 4 MG PO UD for 6 Days, #21 PKG PER DOSE PACK INSTRUCTIONS Prov: ANJALI TODD DO 01/24/20 ANJALI TODD DO Jan 24, 2020 18:49
--- NOTE | 2020-01-24 19:09 | Diagnostic Imaging Report ---
PROCEDURE: CT lumbar spine without contrast. TECHNIQUE: Multiple contiguous axial images were obtained through the lumbar spine without the use of intravenous contrast. Sagittal and coronal reformations were then performed. Auto Exposure Controls were utilized during the CT exam to meet ALARA standards for radiation dose reduction. INDICATION: No known injuries. Lumbar pain, left hip pain for couple weeks. Prior surgery. EXAMINATION: CT lumbar spine without contrast, 01/24/2020. FINDINGS: There is a mild scoliotic deformity of the spine. There is grade 1 anterolisthesis of L5 on S1 with remaining alignment maintained. Vertebral body heights preserved. No acute fractures identified. There is multilevel suspected bulging disc material with a bulging disc at L1-L2 suspected as well as bilateral facet hypertrophy causing at least mild central stenosis. At L4-L5, there appears to be possible severe central stenosis with marked bilateral facet hypertrophy noted. There is a likely bulging disc at this level better characterized with MRI as clinically indicated. Bilateral facet hypertrophy at L5-S1 is also noted with laminectomies at this level. No significant stenosis by CT appreciated. There is diffuse multilevel neural foraminal narrowing most marked at the L4-L5 and L5-S1 levels. The visualized intra-abdominal structures unremarkable for acute process. Atherosclerotic disease is noted. IMPRESSION: 1. Multilevel degenerative findings as above. No acute process is seen. 2. Suspected central stenosis at several levels with bulging disc material also suspected, but better characterized with MRI as clinically indicated. Dictated by: Dictated on workstation # [id number]
--- NOTE | 2020-01-24 19:15 | Diagnostic Imaging Report ---
INDICATION: Left hip pain for a couple of weeks. No known injuries. EXAMINATION: Pelvis/left hip dated 01/24/2020 FINDINGS: Frontal pelvis with 2 views of the left hip. No fractures or dislocations are appreciated with osseous protuberance noted at the anterior femoral head neck junction of the left hip. Right hip similar in appearance. IMPRESSION: 1. No acute abnormality. Dictated by: Dictated on workstation # [id number]
--- NOTE | 2020-01-24 19:20 | Diagnostic Imaging Report ---
PROCEDURE: CT left lower extremity without contrast. TECHNIQUE: Multiple contiguous axial images were obtained through the left lower extremity without the use of intravenous contrast. Sagittal and coronal reformations were then performed. Auto Exposure Controls were utilized during the CT exam to meet ALARA standards for radiation dose reduction. INDICATION: Fell a couple of weeks ago. Continued pain. EXAMINATION: CT left lower extremity dated 01/24/2020 FINDINGS: There is a nonspecific lucency along the anterior border of the left greater trochanter only seen on the axial images. A similar lucency is noted more medially along the anterior femoral head neck junction on image #99 of 231. Although this could represent nutrient foramina given the persistent pain MRI if patient is able would be recommended to evaluate for edema may suggest an underlying occult fracture. No dislocations. No displaced fracture lines. There is diffuse degenerative disease within the hip joint with subchondral cysts throughout the anterior acetabulum and throughout the femoral head. IMPRESSION: 1. Questionable nondisplaced fracture line versus a prominent nutrient foramen left proximal femur as described above and if patient is able MRI would be recommended. 2. Diffuse degenerative findings throughout the joint. Dictated by: Dictated on workstation # [id number]
[2020-01-24] MEDS ORDERED: ORPHENADRINE 60 MG/2 ML (NORFLEX) AMP (ED ONLY) IM STA (19:34)
[2020-01-24] MEDS ORDERED: KETOROLAC 60 MG/2 ML VIAL IM STA (19:34)
[2020-01-24] MEDS ORDERED: METH-313 PO (19:34)
[2020-01-24] MEDS ORDERED: METH4TAB PO (19:34)
[2020-01-24 20:10] VITALS: BP 104/76
== END 2020-01-24 20:10 | disposition home or self-care (01) ==
LOC: EDUNIT# 18:16 → ER 18:17
DX: M54.42 Lumbago with sciatica, left side (principal); M51.36 Other intervertebral disc degeneration, lumbar region; G89.29 Other chronic pain; R93.89 Abnormal findings on diagnostic imaging of other specified body structures; J45.909 Unspecified asthma, uncomplicated; F17.210 Nicotine dependence, cigarettes, uncomplicated; Z82.49 Family history of ischemic heart disease and other diseases of the circulatory system; Z79.52 Long term (current) use of systemic steroids
CPT/HCPCS: 72131; 73700

== ENCOUNTER 2020-05-08 13:07 | Emergency (ER) | payer SELFPAY ==
[~2020-05-08] VITALS: Ht 172.7 cm; Wt 109.7 kg
--- NOTE | 2020-05-08 13:56 | ED GI ---
General Chief Complaint: Abdominal/GI Problems Stated Complaint: DIARRHEA Nursing Triage Note: PT AMB TO RM 6 WITH COMPLAINT OF DIARRHEA AND LOW QUADRANT TENDERNESS. Sepsis Screen: No Definite Risk History of Present Illness Date Seen by Provider: May 08, 2020 Time Seen by Provider: 13:54 Initial Comments This is a healthy appearing 44 yo female who presented for diarrhea and nausea that started yesterday around 1800. Denies any new foods or exposures. States she has intermittent cramping abdominal pain, which she rates 5 out of 10 at its worst. Denies fevers, chills, vomiting, cough, chest pain, shortness of breath. He requested a work note at discharge for this evening. Timing/Duration: 1 Day Severity/Quality: Mild Location: Generalized Abdomen Allergies and Home Medications Allergies Coded Allergies: No Known Drug Allergies (Unverified , 01/27/09) Home Medications Hyoscyamine Sulfate 0.125 Mg Tab.subl, 1-2 TAB SL Q4H Prescribed by: ANJALI TODD on 10/10/18 0323 Methocarbamol 750 Mg Tablet, 750 MG PO Q4H PRN for PAIN-MODERATE (5-7) Prescribed by: GOVIND EVANS on 10/03/191957 Methocarbamol 750 Mg Tablet, 750 MG PO Q6H Prescribed by: ANJALI TODD on 01/24/201933 Methylprednisolone 4 Mg Tab.ds.pk, 4 MG PO UD PER DOSE PACK INSTRUCTIONS Prescribed by: ANJALI TODD on 01/24/201933 Ondansetron 4 Mg Tab.rapdis, 4 MG PO Q4H PRN for NAUSEA/VOMITING Prescribed by: BRITT DENNIS on 05/08/20 150 Prednisone 20 Mg Tab, 40 MG PO DAILY Prescribed by: GOVIND EVANS on 10/03/191957 Patient Home Medication List Home Medication List Reviewed: Yes Review of Systems Review of Systems Constitutional: see HPI EENTM: No Symptoms Reported Respiratory: No Symptoms Reported Cardiovascular: No Symptoms Reported Gastrointestinal: See HPI Genitourinary: No Symptoms Reported Musculoskeletal: no symptoms reported Skin: no symptoms reported Psychiatric/Neurological: No Symptoms Reported Endocrine: No Symptoms Reported Hematologic/Lymphatic: No Symptoms Reported Past Pjourir-Sjzhmc-Yncnqf Hx Patient Social History Alcohol Use: Past History Recreational Drug Use: No Smoking Status: Current Everyday Smoker Type Used: Cigarettes 2nd Hand Smoke Exposure: Yes Recent Foreign Travel: No Contact w/Someone Who Travel: No Recent Infectious Disease Expo: No Recent Hopitalizations: No Immunizations Up To Date Tetanus Booster (TDap): Unknown Seasonal Allergies Seasonal Allergies: No Past Medical History Surgeries: Yes (LUMBAR SPINE SURGERY 2010) Section, Gallbladder, Orthopedic, Tubal Ligation Respiratory: Yes Asthma Cardiac: No Neurological: Yes (HAS HAD "SEIZURES" IN PAST-NO MEDS, NO NEUROLOGIST--? 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 Genitourinary: No Gastrointestinal: Yes (S/P AJ) Gall Bladder Disease Musculoskeletal: Yes (SCIATICA; LUMBAR SPINE SURGERY 2010) Chronic Back Pain Endocrine: No HEENT: No Cancer: No Psychosocial: Yes (ANGER EXPLOSIVE DISORDER) Pseudo Seizures, Anxiety, Bipolar, Depression Integumentary: No Blood Disorders: No Adverse Reaction/Blood Tranf: No Family Medical History Heart Disease, Cancer, COPD, Stroke Physical Exam Vital Signs Vital Signs - First Documented 05/08/20 13:19 Temp 37.0 Pulse 98 Resp 18 B/P (MAP) 104/79 (87) Pulse Ox 97 O2 Delivery Room Air Capillary Refill : Less Than 3 Seconds Height/Weight/BMI Height: 5'7.00" Weight: 218lbs. oz. 98.624594pn; 36.00 BMI Method:Stated General Appearance: WD/WN, no apparent distress HEENT: normal ENT inspection, pharynx normal Neck: full range of motion, normal inspection Respiratory: chest non-tender, lungs clear, normal breath sounds, no respiratory distress Cardiovascular: regular rate, rhythm, no murmur Gastrointestinal: normal bowel sounds, soft, no organomegaly; No guarding, No rebound, No hepatomegaly, No spleenomegaly Extremities: normal range of motion, normal inspection, normal capillary refill Neurologic/Psychiatric: no motor/sensory deficits, alert, normal mood/affect, oriented x 3 Skin: normal color, warm/dry Progress/Results/Core Measures Results/Orders Lab Results Laboratory Tests Test 05/08/20 14:15 05/08/20 14:56 Range/Units White Blood Count 5.8 4.3-11.0 10^3/uL Red Blood Count 4.84 3.80-5.11 10^6/uL Hemoglobin 15.4 11.5-16.0 g/dL Hematocrit 47 35-52 % Mean Corpuscular Volume 97 80-99 fL Mean Corpuscular Hemoglobin 32 25-34 pg Mean Corpuscular Hemoglobin Concent 33 32-36 g/dL Red Cell Distribution Width 12.1 10.0-14.5 % Platelet Count 234 130-400 10^3/uL Mean Platelet Volume 10.6 9.0-12.2 fL Immature Granulocyte % (Auto) 0 % Neutrophils (%) (Auto) 51 42-75 % Lymphocytes (%) (Auto) 34 12-44 % Monocytes (%) (Auto) 9 0-12 % Eosinophils (%) (Auto) 6 0-10 % Basophils (%) (Auto) 1 0-10 % Neutrophils # (Auto) 3.0 1.8-7.8 10^3/uL Lymphocytes # (Auto) 2.0 1.0-4.0 10^3/uL Monocytes # (Auto) 0.5 0.0-1.0 10^3/uL Eosinophils # (Auto) 0.3 0.0-0.3 10^3/uL Basophils # (Auto) 0.0 0.0-0.1 10^3/uL Immature Granulocyte # (Auto) 0.0 0.0-0.1 10^3/uL Sodium Level 140 135-145 MMOL/L Potassium Level 4.1 3.6-5.0 MMOL/L Chloride Level 108 H 98-107 MMOL/L Carbon Dioxide Level 23 21-32 MMOL/L Anion Gap 9 5-14 MMOL/L Blood Urea Nitrogen 8 7-18 MG/DL Creatinine 0.86 0.60-1.30 MG/DL Estimat Glomerular Filtration Rate > 60 BUN/Creatinine Ratio 9 Glucose Level 101 70-105 MG/DL Calcium Level 8.7 8.5-10.1 MG/DL Corrected Calcium 9.0 8.5-10.1 MG/DL Total Bilirubin 0.5 0.1-1.0 MG/DL Aspartate Amino Transf (AST/SGOT) 22 5-34 U/L Alanine Aminotransferase (ALT/SGPT) 25 0-55 U/L Alkaline Phosphatase 30 L 40-136 U/L Total Protein 6.5 6.4-8.2 GM/DL Albumin 3.6 3.2-4.5 GM/DL Urine Color YELLOW Urine Clarity SL CLOUDY Urine pH 6.5 5-9 Urine Specific [place] 1.025 H 1.016-1.022 Urine Protein NEGATIVE NEGATIVE Urine Glucose (UA) NEGATIVE NEGATIVE Urine Ketones NEGATIVE NEGATIVE Urine Nitrite NEGATIVE NEGATIVE Urine Bilirubin NEGATIVE NEGATIVE Urine Urobilinogen 0.2 < = 1.0 MG/DL Urine Leukocyte Esterase NEGATIVE NEGATIVE Urine RBC (Auto) NEGATIVE NEGATIVE Urine RBC RARE /HPF Urine WBC 0-2 /HPF Urine Squamous Epithelial Cells 5-10 /HPF Urine Crystals NONE /LPF Urine Bacteria FEW H /HPF Urine Casts NONE /LPF Urine Mucus NEGATIVE /LPF Urine Culture Indicated YES My Orders Orders - BRITT DENNIS APRN Comprehensive Metabolic Panel (05/08/20 13:46) Ua Culture If Indicated (05/08/20 13:46) Cbc With Automated Diff (05/08/20 13:46) Urine Culture (05/08/20 14:56) Rx-Ondansetron Po (Rx-Zofran Po) (05/08/20 16:00) Rx-Ondansetron Po (Rx-Zofran Po) (05/08/20 15:56) Vital Signs/I&O 05/08/20 05/08/20 13:19 15:59 Temp 37.0 37.0 Pulse 98 98 Resp 18 18 B/P (MAP) 104/79 (87) 110/86 (87) Pulse Ox 97 97 O2 Delivery Room Air Blood Pressure Mean: 87 Progress Progress Note : Progress Note Upon arrival vital signs were stable, overall healthy appearance , no concerns for sepsis. Will obtain basic labs and urine specimen and evaluate need for further testing. Labs reviewed and are unremarkable. Symptoms likely related to gastroenteritis. Reviewed POC and she is agreeable with plan. Will provide take-home Rx for Zofran 4mg ODT tabs. Work note provided. Departure Impression Primary Impression: Abdominal pain Additional Impression: Nausea alone Disposition: 01 HOME, SELF-CARE Condition: Stable/Unchanged Departure-Patient Inst. Decision time for Depature: 14:43 Referrals: [facility] (PCP/Family) Primary Care Physician Patient Instructions: Nausea and Vomiting of (DC) Add. Discharge Instructions: Plan: 1. Discharge home. 2. Drink clear liquids today and advance diet as tolerated. 3. Take Zofran as needed for nausea. 4. Return for any new or concerning symptoms. All discharge instructions reviewed with patient and/or family. Voiced understanding. Scripts Ondansetron (Ondansetron Odt) 4 Mg Tab.rapdis 4 MG PO Q4H PRN for NAUSEA/VOMITING, #30 TAB 0 Refills Prov: BRITT DENNIS APRN 05/08/20 Work/School Note: Work Release Form Date Seen in the Emergency Department: May 08, 2020 Return to Work: May 09, 2020 Restrictions: No Restrictions Restrictions: None BRITT DENNIS APRN May 08, 2020 13:56
[2020-05-08 14:20] LABS: BASOPHILS % (AUTO) 1 % (0-10); EOSINOPHILS # (AUTO) 0.3 10^3/uL (0.0-0.3); EOSINOPHILS % (AUTO) 6 % (0-10); HEMATOCRIT 47 % (35-52); HEMOGLOBIN 15.4 g/dL (11.5-16.0); LYMPHOCYTES % (AUTO) 34 % (12-44); MEAN CORPUSCULAR HEMOGLOBIN 32 pg (25-34); MEAN CORPUSCULAR HGB CONC 33 g/dL (32-36); MEAN CORPUSCULAR VOLUME 97 fL (80-99); MEAN PLATELET VOLUME 10.6 fL (9.0-12.2); MONOCYTES # (AUTO) 0.5 10^3/uL (0.0-1.0); MONOCYTES % (AUTO) 9 % (0-12); NEUTROPHILS % (AUTO) 51 % (42-75); PLATELET COUNT 234 10^3/uL (130-400); WHITE BLOOD COUNT 5.8 10^3/uL (4.3-11.0)
[2020-05-08 14:28] LABS: ALBUMIN 3.6 GM/DL (3.2-4.5); CHLORIDE 108 MMOL/L (98-107); POTASSIUM 4.1 MMOL/L (3.6-5.0); SODIUM 140 MMOL/L (135-145)
[2020-05-08 14:29] LABS: CALCIUM 8.7 MG/DL (8.5-10.1)
[2020-05-08 14:30] LABS: GLUCOSE 101 MG/DL (70-105); TOTAL PROTEIN 6.5 GM/DL (6.4-8.2)
[2020-05-08 14:32] LABS: BILIRUBIN,TOTAL 0.5 MG/DL (0.1-1.0); CARBON DIOXIDE 23 MMOL/L (21-32)
[2020-05-08 14:34] LABS: ALKALINE PHOSPHATASE 30 U/L (40-136); CREATININE SERUM 0.86 MG/DL (0.60-1.30); GFR ESTIMATED > 60
[2020-05-08 14:35] LABS: BUN/CREATININE RATIO 9
[2020-05-08 14:37] LABS: ALANINE AMINOTRANSFERASE 25 U/L (0-55)
[2020-05-08] MEDS ORDERED: ONDA4TAB11 PO (15:05)
[2020-05-08 15:32] LABS: BILIRUBIN,URINE NEGATIVE (NEGATIVE); CLARITY,URINE SL CLOUDY; COLOR,URINE YELLOW; GLUCOSE, URINE (UA) NEGATIVE (NEGATIVE); KETONES,URINE NEGATIVE (NEGATIVE); LEUKOCYTE ESTERASE ,URINE NEGATIVE (NEGATIVE); NITRITE,URINE NEGATIVE (NEGATIVE); PH,URINE 6.5 (5-9); PROTEIN,URINE NEGATIVE (NEGATIVE)
[2020-05-08 15:51] LABS: BACTERIA,URINE FEW /HPF; RBC,URINE RARE /HPF; WBC,URINE 0-2 /HPF
[2020-05-08] MEDS ORDERED: RX-ONDANSETRON 4 MG ODT (ZOFRAN) PPK #4 ONE (15:56)
[2020-05-08 15:59] VITALS: BP 110/86
[2020-05-08] MEDS ORDERED: RX-ONDANSETRON 4 MG ODT (ZOFRAN) PPK #4 PO STA (16:00)
== END 2020-05-08 16:02 | disposition home or self-care (01) ==
LOC: EDUNIT# 13:07 → ER 13:08
DX: R10.84 Generalized abdominal pain (principal); J45.909 Unspecified asthma, uncomplicated; R11.0 Nausea; Z79.52 Long term (current) use of systemic steroids; F17.210 Nicotine dependence, cigarettes, uncomplicated
CPT/HCPCS: 36415; 80053; 81000; 84703; 85025; 87088; 99283

== ENCOUNTER 2020-06-18 18:51 | Emergency (ER) | payer OTHER ==
[~2020-06-18] VITALS: Ht 173 cm; Wt 109.7 kg
[~2020-06-18 18:51] MED LIST changes: +ONDA4TAB11 PO
[2020-06-18] MEDS ORDERED: TETANUS,DIPTH,PERTUSS P/F (BOOSTRIX) 0.5 ML VIAL IM ONE (19:15)
--- NOTE | 2020-06-18 19:34 | NUR ---
pt to [facility]. [facility] with staff.
--- NOTE | 2020-06-18 19:36 | ED Fall/Injury ---
General Chief Complaint: Trauma-Non Activation Stated Complaint: FALL - HEAD / LEFT KNEE PAIN Nursing Triage Note: reports slipping of top step et. falling to concrete. c/o left sided head, left thigh/knee pain. denies loc/neck pain. Source: patient History of Present Illness Date Seen by Provider: Jun 18, 2020 Time Seen by Provider: 19:00 Initial Comments PT ARRIVES VIA POV--DROVE HERE BY HERSELF FROM [place], [place] STATES SHE WORKS FOR "[employer], AND WAS AT A CLIENT'S HOUSE, AND WAS WALKING DOWN WOODEN STAIRS OUTSIDE OF THE HOUSE, AND SLIPPED AND FELL DOWN 3-4 STEPS, HITTING THE LEFT SIDE OF HER HEAD ON CONCRETE LANDING. NO LOSS OF CONSCIOUSNESS NO NECK OR BACK PAIN NO PARESTHESIAS OR MOTOR DEFICITS NO CHEST OR ABDOMINAL PAIN NO NAUSEA/VOMITING NO VISION CHANGES NO DIZZINESS C/O PAIN TO LEFT LATERAL THIGH--HAS MINOR ABRASION AT THIS SITE. BUT ABLE TO WALK WITHOUT DIFFICULTY OCCURRED AT 1810 TONIGHT LAST TETANUS VACCINATION IS UNKNOWN LMP--BEGINNING OF MAY. S/P BTL PCP: MAGUI, HAO SWANSON Allergies and Home Medications Allergies Coded Allergies: No Known Drug Allergies (Unverified , 01/27/09) Home Medications Hyoscyamine Sulfate 0.125 Mg Tab.subl, 1-2 TAB SL Q4H Prescribed by: ANJALI TODD on 10/10/18 0323 Methocarbamol 750 Mg Tablet, 750 MG PO Q4H PRN for PAIN-MODERATE (5-7) Prescribed by: GOVIND EVANS on 10/03/191957 Methocarbamol 750 Mg Tablet, 750 MG PO Q6H Prescribed by: ANJALI TODD on 01/24/201933 Methylprednisolone 4 Mg Tab.ds.pk, 4 MG PO UD PER DOSE PACK INSTRUCTIONS Prescribed by: ANJALI TODD on 01/24/201933 Ondansetron 4 Mg Tab.rapdis, 4 MG PO Q4H PRN for NAUSEA/VOMITING Prescribed by: BRITT DENNIS on 05/08/20 150 Prednisone 20 Mg Tab, 40 MG PO DAILY Prescribed by: GOVIND EVANS on 10/03/191957 Patient Home Medication List Home Medication List Reviewed: Yes Review of Systems Review of Systems Constitutional: no symptoms reported Eyes: No Symptoms Reported Ears, Nose, Mouth, Throat: no symptoms reported Respiratory: no symptoms reported Cardiovascular: no symptoms reported Gastrointestinal: no symptoms reported Genitourinary: no symptoms reported Musculoskeletal: see HPI Skin: see HPI Psychiatric/Neurological: See HPI, Headache; Denies Numbness, Denies Paresthesia, Denies Pre-Existing Deficit, Denies Seizure, Denies Tingling, Denies Tremors, Denies Weakness Past Ngkqlro-Wokwyg-Mokelj Hx Past Med/Social Hx: Reviewed and Corrections made Patient Social History Alcohol Use: Occasionally Uses Recreational Drug Use: No Smoking Status: Current Everyday Smoker (1 PPD) Type Used: Cigarettes 2nd Hand Smoke Exposure: Yes Recent Foreign Travel: No Contact w/Someone Who Travel: No Recent Infectious Disease Expo: No Recent Hopitalizations: No Immunizations Up To Date Tetanus Booster (TDap): Unknown Seasonal Allergies Seasonal Allergies: No Past Medical History Surgeries: Yes (LUMBAR SPINE SURGERY 2010) Section, Gallbladder, Orthopedic, Tubal Ligation Respiratory: Yes Asthma Cardiac: No Neurological: Yes (PSUEDOSEIZURES) Headaches /Migraines : No 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 Genitourinary: No Gastrointestinal: Yes (S/P CHOLECYSTECTOMY) Gall Bladder Disease Musculoskeletal: Yes (SCIATICA; LUMBAR SPINE SURGERY 2010) Chronic Back Pain Endocrine: No HEENT: No Cancer: No Psychosocial: Yes ("ANGER EXPLOSIVE DISORDER") Pseudo Seizures, Anxiety, Bipolar, Personality Disorder, Depression Integumentary: No Blood Disorders: No Adverse Reaction/Blood Tranf: No Family Medical History Heart Disease, Cancer, COPD, Stroke Physical Exam Vital Signs Vital Signs - First Documented 06/18/20 18:58 Temp 36.6 Pulse 95 Resp 18 B/P (MAP) 104/80 (88) Pulse Ox 97 O2 Delivery Room Air Capillary Refill : Less Than 3 Seconds Height, Weight, BMI Height: 5'7.00" Weight: 218lbs. oz. 98.819699zf; 36.00 BMI Method:Stated General Appearance: WD/WN, no apparent distress, obese HEENT: PERRL/EOMI, normal ENT inspection, TMs normal, pharynx normal, other (TENDERNESS AND SWELLING TO LEFT TEMPORAL/PARIETAL AREA. NO OPEN WOUNDS, NO BRUISING OR REDNESS. 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, no motor/sensory deficits, alert, normal mood/affect, oriented x 3 Skin: normal color, warm/dry, other (ABRASION NOTED ABOVE) Progress/Results/Core Measures Results/Orders My Orders Orders - ANJALI TODD DO Ct Head/Cervical Spine Wo (06/18/20 19:05) Femur, Left, 2 Views (06/18/20 19:05) Pelvis (06/18/20 19:05) Dipht,Pertuss(Acell),Tet Adult (Boostrix (06/18/20 19:15) Acetaminophen Tablet (Tylenol Tablet) (06/18/20 20:00) Medications Given in ED Current Medications Medications Dose Ordered Sig/Shira Route Start Time Stop Time Status Last Admin Dose Admin Acetaminophen 1,000 mg ONCE ONCE PO 06/18/20 20:00 06/18/20 20:01 DC 06/18/20 20:00 1,000 MG Diphtheria/ Tetanus/Acell Pertussis 0.5 ml ONCE ONCE IM 06/18/20 19:15 06/18/20 19:16 DC 06/18/20 19:52 0.5 ML Vital Signs/I&O 06/18/20 18:58 Temp 36.6 Pulse 95 Resp 18 B/P (MAP) 104/80 (88) Pulse Ox 97 O2 Delivery Room Air Blood Pressure Mean: [address] HEAD/CERVICAL SPINE--PER RADIOLOGIST REPORT AT 195 IMPRESSION: 1. No hemorrhage or focal intra-axial mass. No CT evidence of large acute territorial ischemia. 2. No acute fracture or dislocation in the cervical spine. 3. Scalp contusion overlying the left frontal region. No associated calvarial fracture. 4. Retained secretions in the left maxillary and frontal sinuses. XRAYS PELVIS AND LEFT FEMUR--NO ACUTE PROCESS, PER RADIOLOGIST REPORT AT 2019 Reviewed: Reviewed by Me Departure Impression Primary Impression: S/P FALL DOWN STEPS Additional Impressions: Minor head injury without loss of consciousness Abrasion of left thigh Vevfzbvcjk-cuacgkbtf-bxbaeyt (DPT) vaccination administered at current visit Contusion of left thigh Disposition: HOME, SELF-CARE Condition: Stable Departure-Patient Inst. Referrals: [facility] (PCP/Family) Primary Care Physician Patient Instructions: Contusion (DC), Minor Head Injury (DC), Preventing Falls, Skin Abrasions (DC), Tdap Vaccine Add. Discharge Instructions: ICE TO SORE AREAS AT 20 MINUTE INTERVALS TYLENOL NEEDED FOR PAIN FOR FIRST 24 HOURS, AFTER THAT YOU MAY ALSO TAKE IBUPROFEN NEEDED FOR PAIN FOLLOW UP WITH OCCUPATIONAL HEALTH ON SATURDAY. All discharge instructions reviewed with patient and/or family. Voiced understanding. ANJALI TODD DO Jun 18, 2020 19:36
--- NOTE | 2020-06-18 19:38 | Diagnostic Imaging Report ---
PROCEDURE: CT head and CT cervical spine without contrast. TECHNIQUE: Multiple contiguous axial images were obtained through the brain and cervical spine without the use of intravenous contrast. Sagittal and coronal reformations through the cervical spine were then performed. Auto Exposure Controls were utilized during the CT exam to meet ALARA standards for radiation dose reduction. INDICATION: Fall. Scalp contusion. Head and neck pain. COMPARISON: None. FINDINGS: CT head: No large acute territorial ischemia, mass or hemorrhage. No midline shift or mass effect. The ventricles, cortical sulci and basilar cisterns are patent and unremarkable. The calvarium is intact. Scalp contusion is seen overlying the left frontal region. Retained secretions are seen in the left maxillary sinus and left frontal sinus. CT cervical spine: No acute fracture or dislocation is seen in the cervical spine. No focal osseous lesion. Vertebral body heights are well maintained. The craniocervical junction is well maintained. Mild degenerative changes are seen in the cervical spine with disc osteophyte complexes and uncovertebral arthropathy. Soft tissues of the neck are unremarkable. IMPRESSION: 1. No hemorrhage or focal intra-axial mass. No CT evidence of large acute territorial ischemia. 2. No acute fracture or dislocation in the cervical spine. 3. Scalp contusion overlying the left frontal region. No associated calvarial fracture. 4. Retained secretions in the left maxillary and frontal sinuses. Dictated by: Dictated on workstation # [id number]
[2020-06-18] MEDS ORDERED: ACETAMINOPHEN 500 MG TAB (TYLENOL) PO ONE (20:00)
--- NOTE | 2020-06-18 20:08 | Diagnostic Imaging Report ---
CLINICAL HISTORY: Fall. Left thigh pain. COMPARISON: 01/24/2020. TECHNIQUE: Single view of the pelvis is obtained. FINDINGS: There is no acute fracture or dislocation of the pelvis and bilateral hips. Alignment is anatomic. The imaged joint spaces are preserved. The surrounding soft tissues are unremarkable. IMPRESSION: No acute fracture or dislocation is seen in the pelvis or bilateral hips. Dictated by: Dictated on workstation # [id number]
--- NOTE | 2020-06-18 20:08 | Diagnostic Imaging Report ---
CLINICAL HISTORY: Fall. Left thigh pain. COMPARISON: 01/24/2020. TECHNIQUE: Four views of the left femur. FINDINGS: There is no acute fracture or dislocation of the left femur. Alignment is anatomic. The imaged joint spaces are preserved. The surrounding soft tissues are unremarkable. IMPRESSION: No acute fracture or dislocation in the left femur. Dictated by: Dictated on workstation # [id number]
[2020-06-18 20:40] VITALS: BP 106/81
== END 2020-06-18 20:44 | disposition home or self-care (01) ==
LOC: EDUNIT# 18:51 → ER 18:53
DX: S70.12XA Contusion of left thigh, initial encounter (principal); S09.90XA Unspecified injury of head, initial encounter; E66.9 Obesity, unspecified; J45.909 Unspecified asthma, uncomplicated; F17.210 Nicotine dependence, cigarettes, uncomplicated; Z23 Encounter for immunization; Z68.36 Body mass index [BMI] 36.0-36.9, adult; Z82.49 Family history of ischemic heart disease and other diseases of the circulatory system; Z80.9 Family history of malignant neoplasm, unspecified; Z79.52 Long term (current) use of systemic steroids; W01.10XA Fall on same level from slipping, tripping and stumbling with subsequent striking against unspecified object, initial encounter
CPT/HCPCS: 70450; 72125; 72170; 73552; 90715

== ENCOUNTER 2020-09-17 14:24 | Emergency (ER) | payer SELFPAY ==
[~2020-09-17] VITALS: Ht 165.1 cm; Wt 117.9 kg
[~2020-09-17 14:24] MED LIST changes: -CIPR500T4 PO; +CIPR500T5 PO
[2020-09-17 14:42] VITALS: BP 108/69
--- NOTE | 2020-09-17 15:10 | ED EENT ---
History of Present Illness General Chief Complaint: Ear Problems Stated Complaint: BILAT EAR ITCHING Nursing Triage Note: Pt ambulatory to triage. Pt c/o bilateral ear itching with drainage and hearing loss to R ear. Pt reports symptoms have persisted for a couple days. Source: patient Exam Limitations: no limitations History of Present Illness Date Seen by Provider: Sep 17, 2020 Time Seen by Provider: 15:00 Initial Comments This is a healthy-appearing 45-year-old female who presents to ER with complaints of bilateral ear itching and yellow drainage 2 days. She has had a history of this before. However, has cleared spontaneously in the past. No fever, dizziness, weakness, chills, cough, shortness of breath, nausea/vomiting. Allergies and Home Medications Allergies Coded Allergies: No Known Drug Allergies (Unverified , 01/27/09) Home Medications Ciprofloxacin/Hydrocortisone 1 Ea Susp, 3 DROPS OT Q12H Instill 3 drops to right ear Prescribed by: BRITT DENNIS on 09/17/20 1518 Hyoscyamine Sulfate 0.125 Mg Tab.subl, 1-2 TAB SL Q4H Prescribed by: ANJALI TODD on 10/10/18 0323 Methocarbamol 750 Mg Tablet, 750 MG PO Q4H PRN for PAIN-MODERATE (5-7) Prescribed by: GOVIND EVANS on 10/03/191957 Methocarbamol 750 Mg Tablet, 750 MG PO Q6H Prescribed by: ANJALI TODD on 01/24/201933 Methylprednisolone 4 Mg Tab.ds.pk, 4 MG PO UD PER DOSE PACK INSTRUCTIONS Prescribed by: ANJALI TODD on 01/24/201933 Ondansetron 4 Mg Tab.rapdis, 4 MG PO Q4H PRN for NAUSEA/VOMITING Prescribed by: BRITT DENNIS on 05/08/20 1505 Prednisone 20 Mg Tab, 40 MG PO DAILY Prescribed by: GOVIND EVANS on 10/03/191957 Patient Home Medication List Home Medication List Reviewed: Yes Review of Systems Review of Systems Constitutional: no symptoms reported Eyes: No Symptoms Reported Ears: See HPI Nose: no symptoms reported Mouth: no symptoms reported Throat: no symptoms reported Respiratory: no symptoms reported Cardiovascular: no symptoms reported Musculoskeletal: no symptoms reported Skin: no symptoms reported Neurological: No Symptoms Reported Hematologic/Lymphatic: No Symptoms Reported Immunological/Allergic: no symptoms reported All Other Systems Reviewed Negative Unless Noted: Yes Past Dwbkrio-Aiobah-Gxknqh Hx Patient Social History Alcohol Use: Denies Use Smoking Status: Current Everyday Smoker Type Used: Cigarettes 2nd Hand Smoke Exposure: Yes Recent Infectious Disease Expo: No Recent Hopitalizations: No Immunizations Up To Date Tetanus Booster (TDap): Unknown Seasonal Allergies Seasonal Allergies: No Past Medical History Surgeries: Yes (LUMBAR SPINE SURGERY 2010) Section, Gallbladder, Orthopedic, Tubal Ligation Respiratory: Yes Asthma Cardiac: No Neurological: Yes (PSUEDOSEIZURES) Headaches /Migraines 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 Genitourinary: No Gastrointestinal: Yes (S/P CHOLECYSTECTOMY) Gall Bladder Disease Musculoskeletal: Yes (SCIATICA; LUMBAR SPINE SURGERY 2010) Chronic Back Pain Endocrine: No HEENT: No Cancer: No Psychosocial: Yes ("ANGER EXPLOSIVE DISORDER") Pseudo Seizures, Anxiety, Bipolar, Personality Disorder, Depression Integumentary: No Blood Disorders: No Adverse Reaction/Blood Tranf: No Family Medical History Heart Disease, Cancer, COPD, Stroke Physical Exam Vital Signs Vital Signs - First Documented 09/17/20 14:42 Temp 36.4 Pulse 80 Resp 16 B/P (MAP) 108/69 (82) Pulse Ox 97 O2 Delivery Room Air Height, Weight, BMI Height: 5'7.00" Weight: 218lbs. oz. 98.696425by; 43.00 BMI Method:Stated General Appearance: WD/WN, no apparent distress Eyes: bilateral eye normal inspection, bilateral eye PERRL, bilateral eye EOMI Ears: right ear discharge, right ear tenderness, right ear TM dull, right ear other (retracted TM); left ear TM normal; bilateral ear auricle normal, bilateral ear canal normal Nose: normal inspection Mouth/Throat: normal mouth inspection, pharynx normal Neck: full range of motion, normal inspection Cardiovascular: regular rate, rhythm, no murmur Respiratory: lungs clear, normal breath sounds Neurologic/Psychiatric: no motor/sensory deficits (no gross motor/sensory deficits ), alert, normal mood/affect, oriented x 3 Skin: normal color, warm/dry Progress/Results/Core Measures Results/Orders Vital Signs/I&O Blood Pressure Mean: 82 Departure Impression Primary Impression: Itching of ear Additional Impression: Right otitis media Disposition: 01 HOME, SELF-CARE Condition: Stable Departure-Patient Inst. Decision time for Depature: 15:06 Referrals: [facility] (PCP/Family) Primary Care Physician Patient Instructions: Ear Infection ED Add. Discharge Instructions: Plan: 1. Discharge home. 2. Take ear drops as directed. Avoid putting anything into your ear as this can cause the ear drum to rupture. 3. Follow up with your primary care provider if your symptoms persist. 4. Return for any new or concerning symptoms. All discharge instructions reviewed with patient and/or family. Voiced understanding. Scripts Ciprofloxacin/Hydrocortisone (Cipro Hc Otic Suspension) 1 Ea Susp 3 DROPS OT Q12H for 7 Days, #10 ML 0 Refills Instill 3 drops to right ear Prov: BRITT DENNIS DATA PROCESSING OPERATOR 09/17/20 BRITT DENNIS DATA PROCESSING OPERATOR Sep 17, 2020 15:09
[2020-09-17] MEDS ORDERED: NF-CIPROHC OT (15:18)
== END 2020-09-17 15:28 | disposition home or self-care (01) ==
LOC: EDUNIT# 14:24 → ER 14:27
DX: H66.91 Otitis media, unspecified, right ear (principal); J45.909 Unspecified asthma, uncomplicated; F17.210 Nicotine dependence, cigarettes, uncomplicated; Z82.49 Family history of ischemic heart disease and other diseases of the circulatory system; Z80.9 Family history of malignant neoplasm, unspecified; Z79.52 Long term (current) use of systemic steroids
CPT/HCPCS: 99281

== ENCOUNTER 2020-10-28 16:48 | Emergency (ER) | payer SELFPAY ==
[~2020-10-28] VITALS: Ht 170 cm; Wt 118.0 kg
[~2020-10-28 16:48] MED LIST changes: +NF-CIPROHC OT
[2020-10-28 17:11] LABS: ABG BASE EXCESS -2.2 MMOL/L (-2.5-2.5); ABG OXYGEN SATURATION 96 % (94-100); ABG PCO2 34 MMHG (35-45); ABG PH 7.42 (7.37-7.43); ABG PO2 79 MMHG (79-93); ABG TCO2 22.6 MMOL/L (21.0-31.0)
[2020-10-28 17:12] LABS: ALLENS TEST YES-POS; INSPIRED O2 RA; PATIENT TEMP 36.8; VENTILATOR NO
--- NOTE | 2020-10-28 17:13 | ED Cough/URI ---
General Chief Complaint: Respiratory Problems Stated Complaint: HX ASTHMA/SOB/COUGH Source: patient Exam Limitations: no limitations History of Present Illness Date Seen by Provider: Oct 28, 2020 Time Seen by Provider: 16:43 Initial Comments To ER with cough wheezing and shortness of breath for about 3 weeks. She saw [facility] with the onset of this and was given prednisone which did temporarily help her symptoms but they returned. She has had chills but no fevers. She has asthma and she smokes 1/2 pack of cigarettes per day. She has some inhalers at home. She has medication for her nebulizer but does not actually have a nebulizer. Timing/Duration: constant, getting worse Severity/Quality: moderate Associated Symptoms: cough, fever/chills, shortness of breath, wheezing Allergies and Home Medications Allergies Coded Allergies: No Known Drug Allergies (Unverified , 01/27/09) Home Medications Ciprofloxacin/Hydrocortisone 1 Ea Susp, 3 DROPS OT Q12H Instill 3 drops to right ear Prescribed by: BRITT DENNIS on 09/17/20 1518 Hyoscyamine Sulfate 0.125 Mg Tab.subl, 1-2 TAB SL Q4H Prescribed by: ANJALI TODD on 10/10/18 0323 Methocarbamol 750 Mg Tablet, 750 MG PO Q4H PRN for PAIN-MODERATE (5-7) Prescribed by: GOVIND EVANS on 10/03/191957 Methocarbamol 750 Mg Tablet, 750 MG PO Q6H Prescribed by: ANJALI TODD on 01/24/20 193 Methylprednisolone 4 Mg Tab.ds.pk, 4 MG PO UD PER DOSE PACK INSTRUCTIONS Prescribed by: ANJALI TODD on 01/24/201933 Ondansetron 4 Mg Tab.rapdis, 4 MG PO Q4H PRN for NAUSEA/VOMITING Prescribed by: BRITT DENNIS on 05/08/20 1505 Prednisone 20 Mg Tab, 40 MG PO DAILY Prescribed by: GOVIND EVANS on 10/03/191957 Patient Home Medication List Home Medication List Reviewed: Yes Review of Systems Review of Systems Constitutional: see HPI, chills; No fever EENTM: see HPI Respiratory: see HPI, cough, short of breath, wheezing Cardiovascular: no symptoms reported Genitourinary: no symptoms reported Musculoskeletal: no symptoms reported Skin: no symptoms reported Psychiatric/Neurological: No Symptoms Reported Past Oqycyrp-Amgxvb-Uzkkdl Hx Patient Social History Type Used: Cigarettes 2nd Hand Smoke Exposure: Yes Recent Hopitalizations: No Immunizations Up To Date Tetanus Booster (TDap): Unknown Seasonal Allergies Seasonal Allergies: No Past Medical History Surgeries: Yes (LUMBAR SPINE SURGERY 2010) Section, Gallbladder, Orthopedic, Tubal Ligation Respiratory: Yes Asthma Cardiac: No Neurological: Yes (PSUEDOSEIZURES) Headaches /Migraines Female Reproductive Disorders: Denies [employer] History: Tubal Ligation Genitourinary: No Gastrointestinal: Yes (S/P CHOLECYSTECTOMY) Gall Bladder Disease Musculoskeletal: Yes (SCIATICA; LUMBAR SPINE SURGERY 2010) Chronic Back Pain Endocrine: No HEENT: No Cancer: No Psychosocial: Yes ("ANGER EXPLOSIVE DISORDER") Pseudo Seizures, Anxiety, Bipolar, Personality Disorder, Depression Integumentary: No Blood Disorders: No Adverse Reaction/Blood Tranf: No Family Medical History Heart Disease, Cancer, COPD, Stroke Physical Exam Vital Signs - First Documented 10/28/20 16:55 Temp 36.4 Pulse 109 Resp 22 B/P (MAP) 144/65 (91) Pulse Ox 95 Capillary Refill : Height: 5'7.00" Weight: 218lbs. oz. 98.764185dl; 43.00 BMI Method:Stated General Appearance: WD/WN, no apparent distress Eyes: Bilateral Eye Normal Inspection, Bilateral Eye PERRL, Bilateral Eye EOMI HEENT: PERRL/EOMI, normal ENT inspection Neck: non-tender, full range of motion Respiratory: no respiratory distress, no accessory muscle use, other (Expiratory wheezing throughout) Gastrointestinal: non tender, soft Neurologic/Psychiatric: alert, normal mood/affect, oriented x 3 Skin: normal color, warm/dry Progress/Results/Core Measures Suspected Sepsis SIRS Temperature: Pulse: Respiratory Rate: Laboratory Tests 10/28/20 17:00: White Blood Count 7.9 Blood Pressure / Mean: Laboratory Tests 10/28/20 17:00: Creatinine 0.80, Platelet Count 268, Total Bilirubin 0.4 Results/Orders Lab Results Laboratory Tests Test 10/28/20 17:00 10/28/20 17:02 Range/Units White Blood Count 7.9 4.3-11.0 10^3/uL Red Blood Count 4.82 3.80-5.11 10^6/uL Hemoglobin 15.6 11.5-16.0 g/dL Hematocrit 46 35-52 % Mean Corpuscular Volume 95 80-99 fL Mean Corpuscular Hemoglobin 32 25-34 pg Mean Corpuscular Hemoglobin Concent 34 32-36 g/dL Red Cell Distribution Width 12.0 10.0-14.5 % Platelet Count 268 130-400 10^3/uL Mean Platelet Volume 10.6 9.0-12.2 fL Immature Granulocyte % (Auto) 0 % Neutrophils (%) (Auto) 50 42-75 % Lymphocytes (%) (Auto) 26 12-44 % Monocytes (%) (Auto) 9 0-12 % Eosinophils (%) (Auto) 13 H 0-10 % Basophils (%) (Auto) 1 0-10 % Neutrophils # (Auto) 4.0 1.8-7.8 10^3/uL Lymphocytes # (Auto) 2.1 1.0-4.0 10^3/uL Monocytes # (Auto) 0.7 0.0-1.0 10^3/uL Eosinophils # (Auto) 1.1 H 0.0-0.3 10^3/uL Basophils # (Auto) 0.1 0.0-0.1 10^3/uL Immature Granulocyte # (Auto) 0.0 0.0-0.1 10^3/uL Neutrophils % (Manual) 46 % Lymphocytes % (Manual) 29 % Monocytes % (Manual) 13 % Eosinophils % (Manual) 11 % Basophils % (Manual) 0 % Band Neutrophils 0 % Reactive Lymphocytes 1 % Blood Morphology Comment NORMAL D-Dimer 0.52 H 0.00-0.49 UG/ML Sodium Level 136 135-145 MMOL/L Potassium Level 3.8 3.6-5.0 MMOL/L Chloride Level 107 98-107 MMOL/L Carbon Dioxide Level 21 21-32 MMOL/L Anion Gap 8 5-14 MMOL/L Blood Urea Nitrogen 8 7-18 MG/DL Creatinine 0.80 0.60-1.30 MG/DL Estimat Glomerular Filtration Rate > 60 BUN/Creatinine Ratio 10 Glucose Level 102 70-105 MG/DL Calcium Level 8.9 8.5-10.1 MG/DL Corrected Calcium 9.1 8.5-10.1 MG/DL Total Bilirubin 0.4 0.1-1.0 MG/DL Aspartate Amino Transf (AST/SGOT) 20 5-34 U/L Alanine Aminotransferase (ALT/SGPT) 24 0-55 U/L Alkaline Phosphatase 30 L 40-136 U/L Total Protein 7.0 6.4-8.2 GM/DL Albumin 3.7 3.2-4.5 GM/DL Serum Test, Qualitative NEGATIVE NEGATIVE Blood Gas Puncture Site L RAD Blood Gas Patient Temperature 36.8 Arterial Blood pH 7.42 7.37-7.43 Arterial Blood Partial Pressure CO2 34 L 35-45 MMHG Arterial Blood Partial Pressure O2 79 79-93 MMHG Arterial Blood HCO3 22 L 23-27 MMOL/L Arterial Blood Total CO2 22.6 21.0-31.0 MMOL/L Arterial Blood Oxygen Saturation 96 94-100 % Arterial Blood Base Excess -2.2 -2.5-2.5 MMOL/L Jaiden Test YES-POS Blood Gas Ventilator Setting NO Blood Gas Inspired Oxygen RA Coronavirus 2019 (BARBER) Negative Negative My Orders Orders - GOVIND EVANS APRN Covid 19 Inhouse Test (10/28/20 17:07) Cbc With Automated Diff (10/28/20 17:07) Comprehensive Metabolic Panel (10/28/20 17:07) Hcg,Qualitative Serum (10/28/20 17:07) Chest 1 View, Ap/Pa Only (10/28/20 17:07) Arterial Blood Gas (10/28/20 17:07) Methylprednisolone Sod Succ (Solu-Medrol (10/28/20 17:15) Albuterol/Ipra Inhalation Soln (Duoneb I (10/28/20 17:15) Svn Small Volume Nebulizer (10/28/20 17:07) Fibrin Degradation Products (10/28/20 17:13) Manual Differential (10/28/20 17:00) Ct Angio Chest W (10/28/20 17:50) Iohexol Injection (Omnipaque 350 Mg/Ml 1 (10/28/20 18:00) Received Contrast (Hold Metformin- Contr (10/28/20 18:00) Ns (Ivpb) (Sodium Chloride 0.9% Ivpb Bag (10/28/20 18:00) Medications Given in ED Current Medications Medications Dose Ordered Sig/Shira Route Start Time Stop Time Status Last Admin Dose Admin Albuterol/ Ipratropium 3 ml ONCE ONCE INH 10/28/20 17:15 10/28/20 17:17 DC 10/28/20 17:05 3 ML Iohexol 100 ml ONCE ONCE IV 10/28/20 18:00 10/28/20 18:01 DC 10/28/20 18:22 82 ML Methylprednisolone Sodium Succinate 125 mg ONCE ONCE IVP 10/28/20 17:15 10/28/20 17:17 DC 10/28/20 17:17 125 MG Sodium Chloride 100 ml ONCE ONCE IV 10/28/20 18:00 10/28/20 18:01 DC 10/28/20 18:23 80 ML Vital Signs/I&O 10/28/20 16:55 Temp 36.4 Pulse 109 Resp 22 B/P (MAP) 144/65 (91) Pulse Ox 95 Capillary Refill : Departure Impression Primary Impression: Asthma exacerbation Disposition: HOME, SELF-CARE Condition: Stable Departure-Patient Inst. Decision time for Depature: 18:39 Referrals: [facility] (PCP/Family) Primary Care Physician Patient Instructions: Asthma, Adult ED Add. Discharge Instructions: steroids as directed. Use the nebulizer breathing machine. All discharge instructions reviewed with patient and/or family. Voiced understanding. Scripts Prednisone (Prednisone) 20 Mg Tab 60 MG PO DAILY, #9 TAB 0 Refills Prov: GOVIND EVANS APRN 10/28/20 GOVIND EVANS APRN Oct 28, 2020 17:12
[2020-10-28] MEDS ORDERED: methylPREDNISolone 125 MG (Solu-MEDROL) VIAL IVP ONE (17:15)
[2020-10-28] MEDS ORDERED: RT-ALBUTEROL/IPRATROPIUM 3 ML (DUONEB) VIAL INH ONE (17:15)
[2020-10-28 17:19] LABS: BASOPHILS # (AUTO) 0.1 10^3/uL (0.0-0.1); BASOPHILS % (AUTO) 1 % (0-10); EOSINOPHILS # (AUTO) 1.1 10^3/uL (0.0-0.3); EOSINOPHILS % (AUTO) 13 % (0-10); HEMATOCRIT 46 % (35-52); HEMOGLOBIN 15.6 g/dL (11.5-16.0); LYMPHOCYTES # (AUTO) 2.1 10^3/uL (1.0-4.0); LYMPHOCYTES % (AUTO) 26 % (12-44); MEAN CORPUSCULAR HEMOGLOBIN 32 pg (25-34); MEAN CORPUSCULAR HGB CONC 34 g/dL (32-36); MEAN CORPUSCULAR VOLUME 95 fL (80-99); MEAN PLATELET VOLUME 10.6 fL (9.0-12.2); MONOCYTES # (AUTO) 0.7 10^3/uL (0.0-1.0); MONOCYTES % (AUTO) 9 % (0-12); NEUTROPHILS % (AUTO) 50 % (42-75); PLATELET COUNT 268 10^3/uL (130-400); WHITE BLOOD COUNT 7.9 10^3/uL (4.3-11.0)
[2020-10-28 17:25] LABS: ALBUMIN 3.7 GM/DL (3.2-4.5)
[2020-10-28 17:26] LABS: CHLORIDE 107 MMOL/L (98-107); POTASSIUM 3.8 MMOL/L (3.6-5.0); SODIUM 136 MMOL/L (135-145)
[2020-10-28 17:27] LABS: CALCIUM 8.9 MG/DL (8.5-10.1)
[2020-10-28 17:28] LABS: GLUCOSE 102 MG/DL (70-105)
[2020-10-28 17:29] LABS: CARBON DIOXIDE 21 MMOL/L (21-32)
[2020-10-28 17:30] LABS: BILIRUBIN,TOTAL 0.4 MG/DL (0.1-1.0)
[2020-10-28 17:31] LABS: ALKALINE PHOSPHATASE 30 U/L (40-136)
[2020-10-28 17:32] LABS: GFR ESTIMATED > 60
[2020-10-28 17:33] LABS: BUN/CREATININE RATIO 10
[2020-10-28 17:34] LABS: ALANINE AMINOTRANSFERASE 24 U/L (0-55)
[2020-10-28 17:36] LABS: BAND NEUTROPHILS 0 %; LYMPHOCYTES % (MANUAL) 29 %; NEUTROPHILS % (MANUAL) 46 %
[2020-10-28 17:37] LABS: BASOPHILS % (MANUAL) 0 %; EOSINOPHILS % (MANUAL) 11 %; MONOCYTES % (MANUAL) 13 %; RBC MORPH NORMAL; REACTIVE LYMPHOCYTES 1 %
[2020-10-28] MEDS ORDERED: NS 100 ML (IVPB) BAG IV ONE (18:00)
[2020-10-28] MEDS ORDERED: IOHEXOL 350 MG/ML 100 ML (OMNIPAQUE 350) VIAL IV ONE (18:00)
[2020-10-28] MEDS ORDERED: HOLD METFORMIN - RECEIVED CONTRAST 20 ML VIAL IV SCH (18:00)
--- NOTE | 2020-10-28 18:30 | Diagnostic Imaging Report ---
EXAMINATION: CT angiography of the chest. TECHNIQUE: Contrast enhanced thin section helical images were obtained through the chest with intravenous contrast timed for the optimal opacification of the arterial structures per CTA protocol. Post-processing, reconstructions and interpretation of angiographic images of the vessels was performed. 3D MIP reconstructions were performed and reviewed. All CT scans use one or more of the following dose optimizing techniques: automated exposure control, MA and/or KvP adjustment based on patient size and exam type or iterative reconstruction. HISTORY: Shortness of breath. COMPARISON: None available. FINDINGS: There is no pulmonary embolism. There is no edema or pneumonia. No pleural effusion. No pneumothorax. No suspicious nodules. There are a few patchy areas of atelectasis. There is no axillary or supraclavicular lymphadenopathy. There is no mediastinal lymphadenopathy. Heart size is normal. There are no coronary artery calcifications. No pericardial effusion. Aorta is normal in caliber. Limited views of the upper abdomen show tiny cysts in the liver and an absent gallbladder. There are no suspicious osseus lesions. IMPRESSION: No pulmonary embolism, clear lungs. Dictated by: Dictated on workstation # [id number]
--- NOTE | 2020-10-28 18:33 | Diagnostic Imaging Report ---
EXAMINATION: Chest 1 view. HISTORY: Cough and shortness of breath. COMPARISON: CTA chest 10/28/2020. FINDINGS: Heart size and pulmonary vasculature are normal. There are mild interstitial opacities within the lung bases. No pleural effusion or pneumothorax. The osseous structures are intact. IMPRESSION: Mild interstitial opacities in the lung bases. This could represent pulmonary edema or atypical infection. Dictated by: Dictated on workstation # [id number]
[2020-10-28] MEDS ORDERED: PRD20T PO (18:40)
[2020-10-28 18:51] VITALS: BP 130/65
== END 2020-10-28 19:05 | disposition home or self-care (01) ==
LOC: ER 16:48
DX: J45.901 Unspecified asthma with (acute) exacerbation (principal); F17.210 Nicotine dependence, cigarettes, uncomplicated; Z82.49 Family history of ischemic heart disease and other diseases of the circulatory system; Z80.9 Family history of malignant neoplasm, unspecified; Z20.822 Contact with and (suspected) exposure to COVID-19; Z79.52 Long term (current) use of systemic steroids
CPT/HCPCS: 71045; 71275; 80053; 82805; 84703; 85007; 85027; 85379; 99285; U0002; 36415; 87635

== ENCOUNTER 2021-03-13 21:23 | Emergency (ER) | payer SELFPAY ==
[~2021-03-13] VITALS: Ht 170 cm; Wt 118.0 kg
[2021-03-13 22:04] LABS: BILIRUBIN,URINE NEGATIVE (NEGATIVE); CLARITY,URINE SL CLOUDY; COLOR,URINE YELLOW; GLUCOSE, URINE (UA) NEGATIVE (NEGATIVE); KETONES,URINE NEGATIVE (NEGATIVE); LEUKOCYTE ESTERASE ,URINE 3+ (NEGATIVE); NITRITE,URINE POSITIVE (NEGATIVE); PROTEIN,URINE 2+ (NEGATIVE)
[2021-03-13 22:11] LABS: BACTERIA,URINE MODERATE /HPF; WBC,URINE >100 /HPF
--- NOTE | 2021-03-13 22:11 | ED GU-Female ---
General Chief Complaint: - Urinary Stated Complaint: NAUSEA/VOMITING/FEELS WARM/UTI SYMPTOMS Nursing Triage Note: C/O LOWER BACK PAIN, CHILLS, URINARY FREQUENCY STARTING LAST NIGHT. REPORTS VOMITTING /DIARRHEA TODAY. Source: patient Exam Limitations: no limitations History of Present Illness Date Seen by Provider: Mar 13, 2021 Time Seen by Provider: 22:10 Initial Comments Patient is a 45-year-old female who presents to the emergency room today with a chief complaint of nausea, vomiting, chills and sweats. She complains of some urinary frequency and dysuria as well. Onset within the last 24 hours. Patient states she feels like she has urinary tract infection. She denies diarrhea, bl ack or bloody stools. No bloody emesis. No abnormal vaginal discharge. No Covid concerns. All other review of systems reviewed and negative except as stated. Timing/Duration: yesterday Severity/Quality: moderate, burning Location: other (lower abdomen) Radiation: none Activities at Onset: none Associated Symptoms: dysuria, fever/chills, nausea/vomiting, other (diarrhea) Allergies and Home Medications Allergies Coded Allergies: No Known Drug Allergies (Unverified , 01/27/09) Home Medications Cephalexin 500 Mg Tablet, 500 MG PO TID Prescribed by: RAINER KING on 03/13/212320 Ondansetron 4 Mg Tab.rapdis, 4 MG PO Q8H Prescribed by: RAINER KING on 03/13/212320 Patient Home Medication List Home Medication List Reviewed: Yes Review of Systems Review of Systems Constitutional: see HPI, chills, fever, malaise EENTM: no symptoms reported Respiratory: no symptoms reported Cardiovascular: no symptoms reported Gastrointestinal: abdominal pain, nausea, vomiting Genitourinary: dysuria, frequency : No Musculoskeletal: no symptoms reported Skin: no symptoms reported All Other Systemes Reviewed Negative Unless Noted: Yes Past Zfbqaie-Kiggjm-Ypsosb Hx Patient Social History Tobacco Use?: Yes Tobacco type used: Cigarettes Smoking Status: Current Everyday Smoker Use of E-Cig and/or Vaping dev: No Substance use?: No Alcohol Use?: Yes Pt feels they are or have been: No Immunizations Up To Date Tetanus Booster (TDap): Unknown Seasonal Allergies Seasonal Allergies: No Past Medical History Surgery/Hospitalization HX: AJ, C-SECT, TUBAL, BACK Surgeries: Yes (LUMBAR SPINE SURGERY 2010) Section, Gallbladder, Orthopedic, Tubal Ligation Respiratory: Yes Asthma Cardiac: No Neurological: Yes (PSUEDOSEIZURES) Headaches /Migraines Female 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 Genitourinary: No Gastrointestinal: Yes (S/P CHOLECYSTECTOMY) Gall Bladder Disease Musculoskeletal: Yes (SCIATICA; LUMBAR SPINE SURGERY 2010) Chronic Back Pain Endocrine: No HEENT: No Cancer: No Psychosocial: Yes ("ANGER EXPLOSIVE DISORDER") Pseudo Seizures, Anxiety, Bipolar, Personality Disorder, Depression Integumentary: No Blood Disorders: No Adverse Reaction/Blood Tranf: No Family Medical History Heart Disease, Cancer, COPD, Stroke Physical Exam Vital Signs Vital Signs - First Documented 03/13/21 21:45 Temp 38.0 Pulse 100 Resp 18 B/P (MAP) 131/93 (106) Pulse Ox 98 O2 Delivery Room Air Capillary Refill : Less Than 3 Seconds Height, Weight, BMI Height: 5'7.00" Weight: 218lbs. oz. 98.169870vx; 40.00 BMI Method:Stated General Appearance: WD/WN, no apparent distress Cardiovascular: regular rate, rhythm Respiratory: lungs clear, normal breath sounds, no respiratory distress, no accessory muscle use Gastrointestinal: normal bowel sounds, soft, tenderness (Suprapubic tenderness to palpation) Back: no CVA tenderness Extremities: non-tender, normal inspection, no pedal edema Neurologic/Psychiatric: normal mood/affect, oriented x 3 Skin: normal color, warm/dry Progress/Results/Core Measures Suspected Sepsis SIRS Temperature: Pulse: 100 Respiratory Rate: 18 Blood Pressure 131 /93 Mean: 106 Results/Orders Lab Results Laboratory Tests Test 03/13/21 21:49 03/13/21 22:22 Range/Units Urine Color YELLOW Urine Clarity SL CLOUDY Urine pH 6.0 5-9 Urine Specific [place] 1.015 L 1.016-1.022 Urine Protein 2+ H NEGATIVE Urine Glucose (UA) NEGATIVE NEGATIVE Urine Ketones NEGATIVE NEGATIVE Urine Nitrite POSITIVE H NEGATIVE Urine Bilirubin NEGATIVE NEGATIVE Urine Urobilinogen 0.2 < = 1.0 MG/DL Urine Leukocyte Esterase 3+ H NEGATIVE Urine RBC (Auto) 2+ H NEGATIVE Urine RBC NONE /HPF Urine WBC >100 H /HPF Urine Squamous Epithelial Cells NONE /HPF Urine Renal Epithelial Cells NONE /HPF Urine Crystals NONE /LPF Urine Bacteria MODERATE H /HPF Urine Casts NONE /LPF Urine Mucus NEGATIVE /LPF Urine Culture Indicated YES Glucometer 109 70-110 MG/DL Micro Results Microbiology 03/13/21 Urine Culture - Preliminary, Resulted Escherichia coli My Orders Orders - RAINER KING MD Ua Culture If Indicated (03/13/21 21:54) Ketorolac Injection (Toradol Injection) (03/13/21 22:15) Ondansetron Oral Dissolve Tab (Zofran (03/13/21 22:15) Loperamide Tablet (Imodium Tablet) (03/13/21 22:15) Urine Culture (03/13/21 21:49) Accucheck Stat ONCE (03/13/21 22:11) Cephalexin Capsule (Keflex Capsule) (03/13/21 23:19) Rx-Ondansetron Po (Rx-Zofran Po) (03/13/21 23:19) Medications Given in ED Vital Signs/I&O Capillary Refill : Less Than 3 Seconds Blood Pressure Mean: 106 Departure Impression Primary Impression: Urinary tract infection Qualified Codes: N30.00 - Acute cystitis without hematuria Disposition: HOME, SELF-CARE Condition: Stable Departure-Patient Inst. Decision time for Depature: 23:20 Referrals: [facility] (PCP/Family) Primary Care Physician Patient Instructions: Urinary Tract Infection, Adult (DC) Add. Discharge Instructions: Drink lots of fluids to stay well-hydrated. Take the antibiotics as directed 3 times a day until they are gone, for 7 days. We have taken a culture of your urine and these results will be available in a couple of days. We will contact you if we need to change your antibiotics. You can take [id number] Azo, this helps with bladder spasm and pain. This can be found at the pharmacy as well. You can take it up to 3 times daily. Also [id number] ibuprofen every 6 hours with food as needed for pain. Return to the emergency room if after couple of days you are still having fever, nausea vomiting worsening symptoms or other emergent concerns. Scripts Ondansetron (Ondansetron Odt) 4 Mg Tab.rapdis 4 MG PO Q8H for nausea, #20 TAB Prov: RAINER KING MD 03/13/21 Cephalexin (Cephalexin) 500 Mg Tablet 500 MG PO TID, #21 TAB Prov: RAINER KING MD 03/13/21 RAINER KING MD Mar 13, 2021 22:11
[2021-03-13] MEDS ORDERED: LOPERAMIDE 2 MG (IMODIUM) TABLET PO ONE (22:15)
[2021-03-13] MEDS ORDERED: KETOROLAC 30 MG/ML VIAL IM ONE (22:15)
[2021-03-13] MEDS ORDERED: ONDANSETRON 4 MG (ZOFRAN) ORAL DISSOLVE TAB PO ONE (22:15)
[2021-03-13] MEDS ORDERED: RX-ONDANSETRON 4 MG ODT (ZOFRAN) PPK #4 PO STA (23:19)
[2021-03-13] MEDS ORDERED: CEPHALEXIN 250 MG (KEFLEX) CAP PO STA (23:19)
[2021-03-13] MEDS ORDERED: CEPH500T PO (23:21)
[2021-03-13] MEDS ORDERED: ONDA4TAB11 PO (23:21)
[2021-03-13 23:26] VITALS: BP 129/87
== END 2021-03-13 23:28 | disposition home or self-care (01) ==
LOC: EDUNIT# 21:23 → ER 21:25
DX: N39.0 Urinary tract infection, site not specified (principal); J45.909 Unspecified asthma, uncomplicated; F17.210 Nicotine dependence, cigarettes, uncomplicated
CPT/HCPCS: 81000; 82947; 87077; 87088; 87184; 87186

== ENCOUNTER 2021-08-21 20:41 | Emergency (ER) | payer SELFPAY ==
[~2021-08-21 20:41] MED LIST changes: +CEPH500T PO; +CYCL10TA25 PO; -CYCL10TA9 PO
== END 2021-08-21 21:15 | disposition left against medical advice (07) ==
LOC: EDUNIT# 20:41 → ER 20:48
DX: R51.9 Headache, unspecified (principal); J02.9 Acute pharyngitis, unspecified; R50.9 Fever, unspecified; M79.10 Myalgia, unspecified site

== ENCOUNTER 2022-05-10 20:35 | Emergency (ER) | payer SELFPAY ==
[~2022-05-10] VITALS: Ht 170.2 cm; Wt 106.1 kg
--- NOTE | 2022-05-10 20:58 | ED General ---
General Chief Complaint: COVID19 Suspect/Confirmed Stated Complaint: COUGH, CONGESTION Nursing Triage Note: PT AMBULATE TO ROOM 09 WITH C/O COUGH X2 WEEKS. PT STATES SHE HAS TAKEN MUCINEX AND ALKASELTZER WITHOUT RELIEF. PT STATES SHE HAS NOT SEE PCP FOR THIS C/O. Source of Information: Patient Exam Limitations: No Limitations (VANDA HILL APRN) History of Present Illness Date Seen by Provider: May 10, 2022 Time Seen by Provider: 20:57 Initial Comments Patient presents to the emergency department for cough and congestion for the past few weeks. Has been taking Mucinex at home. Thinks that she has bronchitis. Denies exposure to COVID that she is aware of. Is not vaccinated. Denies fever. Had an inhaler at home but ran out recently. Is a current smoker. Timing/Duration: Constant (2 weeks) Severity: Moderate Modifying Factors: improves with Medication Associated Systoms: No Chest Pain; Cough; No Diaphoresis, No Fever/Chills, No Rash; Shortness of Air (VANDA HILL APRN) Allergies and Home Medications Allergies Coded Allergies: No Known Drug Allergies (Unverified , 01/27/09) Patient Home Medication List Home Medication List Reviewed: Yes (VANDA HILL APRN) Albuterol Sulfate (Proair Hfa) 1 Puff Puff, 2 PUFF IH Q4H Prescribed by: Vanda Hill on 05/10/222210 Azithromycin (Azithromycin) 500 Mg Tablet, 500 MG PO DAILY Prescribed by: Vanda Hill on 05/10/222210 Benzonatate (Tessalon Perles) 100 Mg Capsule, 200 MG PO TID PRN for cough Prescribed by: Vanda Hill on 05/10/222210 Cephalexin (Cephalexin) 500 Mg Tablet, 500 MG PO TID Prescribed by: RAINER KING on 03/13/212320 Ondansetron (Ondansetron Odt) 4 Mg Tab.rapdis, 4 MG PO Q8H Prescribed by: RAINER KING on 03/13/212320 Prednisone (Prednisone) 20 Mg Tab, 60 MG PO DAILY Prescribed by: Vanda Hill on 05/10/222210 Review of Systems Review of Systems Constitutional: No chills, No dizziness, No fever EENTM: see HPI Respiratory: cough, short of breath; No stridor, No wheezing Cardiovascular: No chest pain, No palpitations Gastrointestinal: No abdominal pain, No diarrhea, No nausea, No vomiting Musculoskeletal: no symptoms reported Skin: no symptoms reported Psychiatric/Neurological: Denies Headache, Denies Numbness, Denies Tingling (VANDA HILL APRN) All Other Systems Reviewed Negative Unless Noted: Yes (VANDA HILL APRN) Past Jgjaczj-Zjpejc-Dxgcxr Hx Patient Social History Tobacco Use?: Yes Tobacco type used: Cigarettes Smoking Status: Heavy Tobacco Smoker Smokeless Tobacco Frequency: Never a User Use of E-Cig and/or Vaping dev: Yes E-Cig or Vaping type used: Nicotine Use of E-Cig and/or Vaping Daniel: Light User Substance use?: No Alcohol Use?: No Pt feels they are or have been: No (VANDA HILL APRN) Immunizations Up To Date Tetanus Booster (TDap): Unknown (VANDA HILL APRN) Seasonal Allergies Seasonal Allergies: No (VANDA HILL APRN) Past Medical History Surgery/Hospitalization HX: AJ, C-SECT, TUBAL, BACK Surgeries: Yes (LUMBAR SPINE SURGERY 2010) Section, Gallbladder, Orthopedic, Tubal Ligation Respiratory: Yes Asthma Cardiac: No Neurological: Yes (PSUEDOSEIZURES) Headaches /Migraines Female Reproductive Disorders: Denies PERSONAL CARE AID History: Tubal Ligation Genitourinary: No Gastrointestinal: Yes (S/P CHOLECYSTECTOMY) Gall Bladder Disease Musculoskeletal: Yes (SCIATICA; LUMBAR SPINE SURGERY 2010) Chronic Back Pain Endocrine: No HEENT: No Cancer: No Psychosocial: Yes ("ANGER EXPLOSIVE DISORDER") Pseudo Seizures, Anxiety, Bipolar, Personality Disorder, Depression Integumentary: No Blood Disorders: No Adverse Reaction/Blood Tranf: No (VANDA HILL APRN) Family Medical History Reviewed Nursing Family Hx (VANDA HILL APRN) Heart Disease, Cancer, COPD, Stroke (VANDA HILL APRN) Physical Exam Vital Signs Vital Signs - First Documented 05/10/22 05/10/22 20:50 22:21 Temp 36.8 Pulse 87 Resp 16 B/P (MAP) 125/67 (86) Pulse Ox 98 O2 Delivery Room Air (PEYTON,ANJALI K DO) Vital Signs Capillary Refill : Less Than 3 Seconds (VANDA HILL INVESTMENT UNDERWRITER) Height, Weight, BMI Height: 5'7.00" Weight: 218lbs. oz. 98.505080fv; 36.00 BMI Method:Stated General Appearance: No Apparent Distress, WD/WN HEENT: PERRL/EOMI, TMs Normal, Normal ENT Inspection, Pharynx Normal, Moist Mucous Membranes Neck: Full Range of Motion, Normal Inspection, Non Tender, Supple Respiratory: Chest Non Tender, Lungs Clear, No Accessory Muscle Use, No Respiratory Distress, Decreased Breath Sounds, Wheezing (expiratory throughout all lung nelson) Cardiovascular: Regular Rate, Rhythm, No Edema Gastrointestinal: Normal Bowel Sounds, No Organomegaly, No Pulsatile Mass, Non Tender, Soft Neurologic/Psychiatric: Alert, Oriented x3 Skin: Normal Color, Warm/Dry (VANDA HILL APRN) Progress/Results/Core Measures Suspected Sepsis SIRS Temperature: Pulse: 87 Respiratory Rate: 16 Blood Pressure 125 /67 Mean: 86 (VANDA HILL INVESTMENT UNDERWRITER) Results/Orders Lab Results Laboratory Tests Test 05/10/22 20:56 Range/Units Influenza Type A (RT-PCR) Not Detected Not Detecte Influenza Type B (RT-PCR) Not Detected Not Detecte SARS-CoV-2 RNA (RT-PCR) Not Detected Not Detecte (PEYTONHUMAA K DO) Vital Signs/I&O 05/10/22 05/10/22 05/10/22 20:50 20:50 22:21 Temp 36.8 Pulse 87 89 Resp 16 16 B/P (MAP) 125/67 (86) 108/71 Pulse Ox 98 O2 Delivery Room Air Room Air Room Air (PEYTON,ANJALI K DO) Vital Signs/I&O Capillary Refill : Less Than 3 Seconds (VANDA HILL APRN) Blood Pressure Mean: 86 Progress Note : Progress Note Will obtain XR and COVID swab. Will give breathing treatment and steroids while here in the department. 2210: Discussed with patient results of CXR and COVID testing. Both were negative. Increased air movement after breathing treatment. Continued to have s ome scattered faint expiratory wheezing, but overall improvement in lung sounds. She was not hypoxic while here in the department. Home treatments discussed with patient along with medications. Reasons to return to the ER were discussed with patient. (VANDA HILL APRN) Diagnostic Imaging Diagonstic Imaging: Xray Plain Films/CT/US/NM/MRI: chest Comments NAME: JOHN NARAYAN [facility] REC#: [id number] PT STATUS: REG ER : 1975 PHYSICIAN: VANDA HILL APRN ADMIT DATE: 05/10/22/ER Draft Date of Exam:05/10/22 CHEST 1 VIEW, AP/PA ONLY EXAM: Chest 1 view, AP/PA only INDICATION: Cough and congestion. COMPARISON: Chest radiograph 10/28/2020. FINDINGS: Normal heart size and central pulmonary vascularity. Lungs are clear. No pleural effusion or pneumothorax. No acute osseous finding. IMPRESSION: No acute cardiopulmonary finding. Dictated on workstation # [id number] Dict: 05/10/222116 Trans: 05/10/222121 [facility] [id number] Interpreted by: MISTY CABALLERO MD Electronically signed by: (VANDA HILL APRN) Departure Impression Primary Impression: Bronchitis Disposition: 01 HOME, SELF-CARE Condition: Stable Departure-Patient Inst. Decision time for Depature: 22:07 (VANDA HILL APRN) Referrals: [facility]/K (PCP/Family) Primary Care Physician Patient Instructions: Acute Bronchitis, Adult (DC) Add. Discharge Instructions: 1. Home and rest. 2. Push fluids. 3. Alternate Tylenol/Ibuprofen as needed for pain. 4. May continue over the counter medications as directed per package instructions. 5. Follow up with PCP as needed. 6. Start Prednisone tomorrow AM. Try and take this medication as early in the day as possible and with food to prevent stomach upset. 7. Proair as directed as needed. 8. Benzonatate as directed as needed for cough. 9. Azithromycin as directed until finished. 10. Return here if worse or concerns. All discharge instructions reviewed with patient and/or family. Voiced understanding. Scripts Albuterol Sulfate (PROAIR HFA) 1 Puff Puff 2 PUFF IH Q4H, #1 EA 1 PUFF = 90 MCG Prov: VANDA HILL APRN 05/10/22 Benzonatate (TESSALON PERLES) 100 Mg Capsule 200 MG PO TID PRN for cough, #30 CAP Prov: VANDA HILL APRN 05/10/22 Prednisone (Prednisone) 20 Mg Tab 60 MG PO DAILY, #15 TAB 0 Refills Prov: VANDA HILL APRN 05/10/22 Azithromycin (Azithromycin) 500 Mg Tablet 500 MG PO DAILY for 5 Days, #5 TAB Prov: VANDA HILL APRN 05/10/22 Work/School Note: Work Release Form Date Seen in the Emergency Department: May 10, 2022 Return to Work: May 11, 2022 Restrictions: No Restrictions ATTENDING PHYSICIAN NOTE: I WAS PHYSICALLY PRESENT ER PHYSICIAN, BUT I WAS NOT INVOLVED IN ANY DECISION MAKING OR ANY CARE OF THIS PATIENT, AND I AM NOT COLLABORATING PHYSICIAN. (ANJALI TODD DO) VANDA HILL APRN May 10, 2022 20:58 ANJALI TODD DO May 12, 2022 02:59
[2022-05-10] MEDS ORDERED: RT-ALBUTEROL/IPRATROPIUM 3 ML (DUONEB) VIAL INH ONE (21:00)
[2022-05-10] MEDS ORDERED: predniSONE 20 MG TAB PO ONE (21:00)
--- NOTE | 2022-05-10 21:23 | Diagnostic Imaging Report ---
EXAM: Chest 1 view, AP/PA only INDICATION: Cough and congestion. COMPARISON: Chest radiograph 10/28/2020. FINDINGS: Normal heart size and central pulmonary vascularity. Lungs are clear. No pleural effusion or pneumothorax. No acute osseous finding. IMPRESSION: No acute cardiopulmonary finding. Dictated by: Dictated on workstation # [id number]
[2022-05-10] MEDS ORDERED: RT-ALBUINH IH (22:11)
[2022-05-10] MEDS ORDERED: AZIT500T9 PO (22:11)
[2022-05-10] MEDS ORDERED: BENZ100C18 PO (22:11)
[2022-05-10] MEDS ORDERED: PRD20T PO (22:11)
[2022-05-10 22:21] VITALS: BP 108/71
== END 2022-05-10 22:21 | disposition home or self-care (01) ==
LOC: EDUNIT# 20:35 → ER 20:37
DX: J45.909 Unspecified asthma, uncomplicated (principal); F17.210 Nicotine dependence, cigarettes, uncomplicated; Z91.14 Patient's other noncompliance with medication regimen; Z20.822 Contact with and (suspected) exposure to COVID-19; Z28.310 Unvaccinated for COVID-19
CPT/HCPCS: 71045; 87636

== ENCOUNTER 2022-12-04 19:50 | Emergency (ER) | payer SELFPAY ==
[~2022-12-04 19:50] MED LIST changes: +ALBU8.5H6 IH; +AZIT500T9 PO; -RT-ALBUINH IH
--- NOTE | 2022-12-04 20:46 | ED Lower Extremity ---
General Chief Complaint: Lower Extremity Stated Complaint: EMMANUEL FEET SWELLING Nursing Triage Note: PT AMB TO RM 5 WITH CC OF BILAT FEET SWELLING SINCE THIS AM. PT REPORTS FALL 11/27 CAUSING BITLAT LEG PAIN. PT DENIES OTHER INJURY AND HEART HX. Source: patient Exam Limitations: no limitations History of Present Illness Date Seen by Provider: December 04, 2022 Time Seen by Provider: 20:44 Initial Comments Patient is a 47-year-old female who presents ED with bilateral feet swelling. This started this morning when she woke up. Denies of any specific injury. She reports bilateral feet and ankle pain. She noted swelling and states her feet feel warm. Denies any redness or bruising, calf pain. No history of DVT. History of previous injury to her left ankle several years ago. She denies taking thing for pain. No history of kidney disease, CHF. Denies chest pain, cough, shortness of breath, abdominal pain, vomiting or diarrhea. She states swelling appears to be getting worse Allergies and Home Medications Allergies Coded Allergies: No Known Drug Allergies (Unverified , 01/27/09) Patient Home Medication List Home Medication List Reviewed: Yes Albuterol Sulfate (Ventolin Hfa) 1 Puff Puff, 2 PUFF IH Q4H Prescribed by: Vanda Bright on 05/10/222210 Azithromycin (Azithromycin) 500 Mg Tablet, 500 MG PO DAILY Prescribed by: Vanda Bright on 05/10/222210 Benzonatate (Tessalon Perles) 100 Mg Capsule, 200 MG PO TID PRN for cough Prescribed by: Vanda Bright on 05/10/222210 Cephalexin (Cephalexin) 500 Mg Tablet, 500 MG PO TID Prescribed by: RAINER KING on 03/13/212320 Ondansetron (Ondansetron Odt) 4 Mg Tab.rapdis, 4 MG PO Q8H Prescribed by: RAINER KING on 03/13/212320 Prednisone (Prednisone) 20 Mg Tab, 60 MG PO DAILY Prescribed by: Vanda Bright on 05/10/222210 Review of Systems Constitutional: No chills, No diaphoresis, No fever, No malaise, No weakness EENTM: No ear pain, No blurred vision, No double vision, No mouth pain Respiratory: No cough, No short of breath Cardiovascular: No chest pain; edema Gastrointestinal: No abdominal pain, No diarrhea, No nausea, No vomiting Genitourinary: No decreased output, No discharge Musculoskeletal: No back pain, No joint pain Skin: No change in color, No change in hair/nails; other (Bilatera feet swelling) All Other Systems Reviewed Negative Unless Noted: Yes Past Uvufvux-Utbrdm-Cugzfd Hx Patient Social History Tobacco Use?: Yes Tobacco type used: Cigarettes Smoking Status: Current Everyday Smoker Substance use?: No Alcohol Use?: No Pt feels they are or have been: No Immunizations Up To Date Tetanus Booster (TDap): Unknown Seasonal Allergies Seasonal Allergies: No Past Medical History Surgery/Hospitalization HX: AJ, C-SECT, TUBAL, BACK Surgeries: Yes (LUMBAR SPINE SURGERY 2010) Section, Gallbladder, Orthopedic, Tubal Ligation Respiratory: Yes Asthma Cardiac: No Neurological: Yes (PSUEDOSEIZURES) Headaches /Migraines Female Reproductive Disorders: Denies 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 Genitourinary: No Gastrointestinal: Yes (S/P CHOLECYSTECTOMY) Gall Bladder Disease Musculoskeletal: Yes (SCIATICA; LUMBAR SPINE SURGERY 2010) Chronic Back Pain Endocrine: No HEENT: No Cancer: No Psychosocial: Yes ("ANGER EXPLOSIVE DISORDER") Pseudo Seizures, Anxiety, Bipolar, Personality Disorder, Depression Integumentary: No Blood Disorders: No Adverse Reaction/Blood Tranf: No Family Medical History Heart Disease, Cancer, COPD, Stroke Physical Exam Vital Signs Vital Signs - First Documented 12/04/22 20:22 Pulse 101 Resp 18 B/P (MAP) 130/91 (104) Pulse Ox 96 O2 Delivery Room Air Capillary Refill : Less Than 3 Seconds Height, Weight, BMI Height: 5'7.00" Weight: 218lbs. oz. 98.296906uz; 36.00 BMI Method:Stated General Appearance: WD/WN, no apparent distress HEENT: PERRL/EOMI, normal ENT inspection, TMs normal, pharynx normal Neck: non-tender, full range of motion, supple, normal inspection Cardiovascular: regular rate, rhythm, no edema, no gallop, no JVD Respiratory: chest non-tender, lungs clear, normal breath sounds, no respiratory distress, no accessory muscle use Gastrointestinal: normal bowel sounds, non tender, soft, no organomegaly Back: normal inspection, no CVA tenderness, no vertebral tenderness Hips: bilateral hip non-tender, bilateral hip normal inspection, bilateral hip normal range of motion Knees: bilateral knee non-tender, bilateral knee normal inspection, bilateral knee normal range of motion Ankles: bilateral ankle non-tender, bilateral ankle normal inspection, bilateral ankle normal range of motion Feet: bilateral foot pain, bilateral foot soft tissue tenderness, bilateral foot swelling, bilateral foot other (Refill less than 2. Dorsalis pedis +2) Neurologic/Psychiatric: podiatric medicine doctor II-XII nml as tested, no motor/sensory deficits, alert, normal mood/affect, oriented x 3 Skin: normal color, warm/dry Progress/Results/Core Measures Results/Orders Lab Results Laboratory Tests Test 12/04/22 21:00 Range/Units White Blood Count 12.6 H 4.3-11.0 10^3/uL Red Blood Count 4.46 3.80-5.11 10^6/uL Hemoglobin 14.3 11.5-16.0 g/dL Hematocrit 42 35-52 % Mean Corpuscular Volume 94 80-99 fL Mean Corpuscular Hemoglobin 32 25-34 pg Mean Corpuscular Hemoglobin Concent 34 32-36 g/dL Red Cell Distribution Width 12.3 10.0-14.5 % Platelet Count 248 130-400 10^3/uL Mean Platelet Volume 10.7 9.0-12.2 fL Immature Granulocyte % (Auto) 0 % Neutrophils (%) (Auto) 73 42-75 % Lymphocytes (%) (Auto) 18 12-44 % Monocytes (%) (Auto) 8 0-12 % Eosinophils (%) (Auto) 1 0-10 % Basophils (%) (Auto) 0 0-10 % Neutrophils # (Auto) 9.1 H 1.8-7.8 10^3/uL Lymphocytes # (Auto) 2.3 1.0-4.0 10^3/uL Monocytes # (Auto) 1.0 0.0-1.0 10^3/uL Eosinophils # (Auto) 0.2 0.0-0.3 10^3/uL Basophils # (Auto) 0.0 0.0-0.1 10^3/uL Immature Granulocyte # (Auto) 0.0 0.0-0.1 10^3/uL Erythrocyte Sedimentation Rate 31 H 0-20 MM/HR Sodium Level 140 135-145 MMOL/L Potassium Level 3.9 3.6-5.0 MMOL/L Chloride Level 107 98-107 MMOL/L Carbon Dioxide Level 23 21-32 MMOL/L Anion Gap 10 5-14 MMOL/L Blood Urea Nitrogen 10 7-18 MG/DL Creatinine 0.82 0.60-1.30 MG/DL Estimat Glomerular Filtration Rate 89 BUN/Creatinine Ratio 12 Glucose Level 90 70-105 MG/DL Calcium Level 8.9 8.5-10.1 MG/DL Corrected Calcium 9.1 8.5-10.1 MG/DL Total Bilirubin 0.5 0.1-1.0 MG/DL Aspartate Amino Transf (AST/SGOT) 19 5-34 U/L Alanine Aminotransferase (ALT/SGPT) 18 0-55 U/L Alkaline Phosphatase 39 L 40-136 U/L C-Reactive Protein High Sensitivity 1.44 H 0.00-0.50 MG/DL B-Type Natriuretic Peptide 10.4 <100.0 PG/ML Total Protein 7.0 6.4-8.2 GM/DL Albumin 3.8 3.2-4.5 GM/DL My Orders Orders - JEANNETTE BURT Cbc With Automated Diff (12/04/22 20:42) Comprehensive Metabolic Panel (12/04/22 20:42) Erythrocyte Sedimentation Rate (12/04/22 20:42) Hs C Reactive Protein (12/04/22 20:42) Bnp Luce (12/04/22 20:42) Vital Signs/I&O 12/04/22 12/04/22 20:22 21:54 Pulse 101 100 Resp 18 18 B/P (MAP) 130/91 (104) 113/80 Pulse Ox 96 96 O2 Delivery Room Air Room Air Blood Pressure Mean: 104 Departure Communication (PCP) Reviewed previous ER visits, H&P, lab testing. Patient with bilateral feet swelling. Started this morning. No history of kidney disease, CHF. No history of autoimmune disease. Denies of any trauma. Differential diagnosis of dependent edema, venous insufficiency, autoimmune disease such as RA, gout. on exam she does have some mild edema to the feet. Dorsalis pedis +2. Cap refill less than 2. Warm to touch. No evidence suggesting peripheral vascular disease. No evidence of rash to lower extremity. she has no calf tenderness. Denies chest pain or shortness of breath. Due to current complaint CBC, CMP, BMP, ESR and CRP. Patient white blood count 12.6. Normal kidney function and BNP. ESR 31. CRP 1.44. Nonspecific but slightly elevated. No history of lupus, RA. No history of reactive arthritis. No other joint pain. She is afebrile. No recent infection. Likely more dependent edema. Suggest compression socks, elevate feet at night. If swelling worsens may consider diuretic but recommend following up with your primary care physician in 3 to 4 days. She states she is up on her feet throughout the day at work. History of similar symptoms in the past that resolved on its own. Stable vital signs. She denies chest pain or shortness of breath suggesting PE. Limited risk factors for PE or DVT. There is no evidence of cellulitis. No evidence suggesting gout. If any worsening symptoms return back to ED. Follow-up your PCP in 2 to 3 days for reevaluation.. Discussed naproxen for pain Impression Primary Impression: Bilateral swelling of feet Disposition: HOME, SELF-CARE Condition: Stable Departure-Patient Inst. Decision time for Depature: 21:49 Referrals: [facility]/K (PCP/Family) Primary Care Physician Patient Instructions: Swelling Add. Discharge Instructions: Recommend compression socks to help with swelling. Elevate feet at night. If continue worsening swelling may consider follow-up with your primary care physician for further evaluation. All discharge instructions reviewed with patient and/or family. Voiced unders tanding. Work/School Note: Work Release Form Date Seen in the Emergency Department: December 04, 2022 Return to Work: December 06, 2022 JEANNETTE BURT December 04, 2022 20:46
[2022-12-04 21:08] LABS: BASOPHILS % (AUTO) 0 % (0-10); EOSINOPHILS # (AUTO) 0.2 10^3/uL (0.0-0.3); EOSINOPHILS % (AUTO) 1 % (0-10); HEMATOCRIT 42 % (35-52); HEMOGLOBIN 14.3 g/dL (11.5-16.0); LYMPHOCYTES # (AUTO) 2.3 10^3/uL (1.0-4.0); LYMPHOCYTES % (AUTO) 18 % (12-44); MEAN CORPUSCULAR HEMOGLOBIN 32 pg (25-34); MEAN CORPUSCULAR HGB CONC 34 g/dL (32-36); MEAN CORPUSCULAR VOLUME 94 fL (80-99); MEAN PLATELET VOLUME 10.7 fL (9.0-12.2); MONOCYTES % (AUTO) 8 % (0-12); NEUTROPHILS # (AUTO) 9.1 10^3/uL (1.8-7.8); NEUTROPHILS % (AUTO) 73 % (42-75); PLATELET COUNT 248 10^3/uL (130-400); WHITE BLOOD COUNT 12.6 10^3/uL (4.3-11.0)
[2022-12-04 21:28] LABS: ALBUMIN 3.8 GM/DL (3.2-4.5); BILIRUBIN,TOTAL 0.5 MG/DL (0.1-1.0); CALCIUM 8.9 MG/DL (8.5-10.1); CREATININE SERUM 0.82 MG/DL (0.60-1.30); POTASSIUM 3.9 MMOL/L (3.6-5.0)
[2022-12-04 21:37] LABS: ERYTHROCYTE SEDIMENTATION RATE 31 MM/HR (0-20)
[2022-12-04 21:54] VITALS: BP 113/80
== END 2022-12-04 21:54 | disposition home or self-care (01) ==
LOC: EDUNIT# 19:50 → ER 19:51
DX: M79.89 Other specified soft tissue disorders (principal); M79.672 Pain in left foot; M79.671 Pain in right foot; F17.210 Nicotine dependence, cigarettes, uncomplicated; Z28.310 Unvaccinated for COVID-19
CPT/HCPCS: 36415; 80053; 83880; 85025; 85652; 86141